=== PATIENT | male | born 1960 | race Two or more races ===

== ENCOUNTER → 2024-02-29 | Outpatient (CLI) | payer OTHER, SELFPAY ==
[2024-02-29 14:24] LABS: Basophils # (Auto) 0.1 Thou/mm3 (0.0-0.2); Basophils % (Auto) 1 % (0-2.5); Eosinophils # (Auto) 0.2 Thou/mm3 (0.0-0.5); Eosinophils % (Auto) 2 % (0-10); Hematocrit 47.8 % (41.0-53.0); Immature Granulocytes % (Auto) 1 % (0-0); Immature Granulocytes Auto 0.05 Thou/mm3 (0.00-0.00); Lymphocytes % (Auto) 30 % (10-50); Mean Corpuscular HGB Conc 33.5 g/dl (31.0-37.0); Mean Corpuscular Hemoglobin 31.4 pg (25.0-35.0); Mean Corpuscular Volume 94 fL (80-100); Monocytes # (Auto) 0.7 Thou/mm3 (0.0-0.8); Monocytes % (Auto) 7 % (0-12); Neutrophils % (Auto) 60 % (37-80); Nucleated Red Blood Cell % 0 /100 WBC (0); Platelet Count 294 Thou/mm3 (140-440); RDW Standard Deviation 45.5 fL (35.1-43.9); Red Blood Count 5.09 Miln/mm3 (4.50-5.90); White Blood Count 9.9 Thou/mm3 (3.8-10.6)
[2024-02-29 14:28] LABS: INR 0.9 (0.9-1.3); Partial Thromboplastin Time 26.7 Seconds (22.0-36.0); Prothrombin Time 10.3 Seconds (9.0-12.2)
[2024-02-29 14:29] LABS: Glucose Estimated Average 131 mg/dL (80-131); Hemoglobin A1C 6.2 % Hgb (4.8-6.0)
[2024-02-29 14:31] LABS: Anion Gap 7 (7-16); BUN/Creatinine Ratio 17 Ratio (12-20); Blood Urea Nitrogen 15 mg/dL (9-23); Calcium 9.3 mg/dL (8.3-10.6); Carbon Dioxide 29.6 mMol/L (20.0-31.0); Chloride 107 mMol/L (98-107); Creatinine (Component) 0.9 mg/dL (0.6-1.3); Glucose 100 mg/dL (74-106); Osmolality,Calculated 287 (275-295); Potassium 4.4 mMol/L (3.4-5.1); Sodium 144 mMol/L (136-145); eGFR > 60 See Note
== END | disposition home or self-care (01) ==
LOC: COPL 13:02
PROVIDERS: Referring Provider Internal Medicine; Visit Provider Internal Medicine
DX: I25.10 Atherosclerotic heart disease of native coronary artery without angina pectoris (principal); I48.91 Unspecified atrial fibrillation
CPT/HCPCS: 36415; 80048; 83036; 85025; 85610; 85730

== ENCOUNTER → 2024-03-23 | Outpatient (CLI) | payer OTHER, SELFPAY ==
[2024-03-23 16:10] LABS: Collection Type, Urine Catheter; Squamous Epithelial Cell,Urine 0 /hpf (0-5)
[2024-03-23 16:30] LABS: Basophils % (Auto) 0 % (0-2.5); Eosinophils # (Auto) 0.2 Thou/mm3 (0.0-0.5); Eosinophils % (Auto) 2 % (0-10); Hematocrit 50.3 % (41.0-53.0); Hemoglobin 16.8 g/dL (13.5-16.0); Immature Granulocytes % (Auto) 0 % (0-0); Immature Granulocytes Auto 0.02 Thou/mm3 (0.00-0.00); Lymphocytes # (Auto) 2.8 Thou/mm3 (1.0-4.8); Lymphocytes % (Auto) 26 % (10-50); Mean Corpuscular HGB Conc 33.4 g/dl (31.0-37.0); Mean Corpuscular Hemoglobin 31.4 pg (25.0-35.0); Mean Corpuscular Volume 94 fL (80-100); Monocytes # (Auto) 0.8 Thou/mm3 (0.0-0.8); Monocytes % (Auto) 8 % (0-12); Neutrophils # (Auto) 6.9 Thou/mm3 (1.8-7.7); Neutrophils % (Auto) 64 % (37-80); Nucleated Red Blood Cell % 0 /100 WBC (0); Platelet Count 298 Thou/mm3 (140-440); RDW Standard Deviation 45.8 fL (35.1-43.9); Red Blood Count 5.35 Miln/mm3 (4.50-5.90); White Blood Count 10.8 Thou/mm3 (3.8-10.6)
[2024-03-23 16:50] LABS: Alanine Aminotransferase 25 U/L (10-49); Albumin, Serum 4.7 gm/dL (3.4-4.8); Albumin/Globulin Ratio 2.1 (1.2-2.2); Alkaline Phosphatase 137 U/L (46-116); Anion Gap 9 (7-16); Aspartate Amino Transferase 28 U/L (0-34); BUN/Creatinine Ratio 17 Ratio (12-20); Blood Urea Nitrogen 19 mg/dL (9-23); Calcium 9.5 mg/dL (8.3-10.6); Calcium (Corrected) 9.5 mg/dL (8.5-10.1); Carbon Dioxide 27.5 mMol/L (20.0-31.0); Chloride 107 mMol/L (98-107); Cholesterol 124 mg/dL (132-200); Creatinine (Component) 1.1 mg/dL (0.6-1.3); Globulin 2.2 gm/dL (2.3-3.5); Glucose 101 mg/dL (74-106); HDL Cholesterol 42 mg/dL (40-60); LDL Cholesterol,Calculated 63 mg/dL (0-130); Osmolality,Calculated 287 (275-295); Potassium 4.1 mMol/L (3.4-5.1); Sodium 143 mMol/L (136-145); Thyroid Stimulating Hormone 0.66 uIU/mL (0.55-4.78); Total Protein 6.9 gm/dL (5.7-8.2); Triglycerides 97 mg/dL (30-150); eGFR > 60 See Note
[2024-03-23 16:51] LABS: Glucose Estimated Average 126 mg/dL (80-131)
[2024-03-23 16:58] LABS: Bilirubin,Urine Negative (Negative); Blood,Urine Trace (Negative); Clarity,Urine Clear (Clear/Hazy); Color,Urine Yellow (Lt Yel-Yel); Glucose, Urine Negative (Negative); Ketones,Urine Negative (Negative); Leukocyte Esterase,Urine Negative (Negative); Nitrite,Urine Negative (Negative); PH,Urine 6.5 (5.0-7.0); Protein,Urine Trace (Neg - Trace); RBC,Urine 3 /hpf (0-3); Specific Gravity,Urine 1.026 (1.001-1.035); Urobilinogen,Urine Negative mg/dL (0.0-1.0); WBC,Urine 2 /hpf (0-5)
[2024-03-23 17:08] LABS: Syphilis Nonreactive (Nonreactive)
[2024-03-23 17:14] LABS: HIV (1&2) Antibody Rapid Non-Reactive
[2024-03-23 17:39] LABS: Hepatitis A Antibody IgM Non Reactive (Non React); Hepatitis B Core Antibody IgM Non Reactive (Non React); Hepatitis B Surface Antigen Non Reactive (Non React); Hepatitis C Antibody Non Reactive (Non React)
== END | disposition home or self-care (01) ==
LOC: COPL 13:47
PROVIDERS: PCP Family Medicine; Referring Provider Family Medicine; Visit Provider Family Medicine
DX: Z00.00 Encounter for general adult medical examination without abnormal findings (principal); I25.10 Atherosclerotic heart disease of native coronary artery without angina pectoris; E78.2 Mixed hyperlipidemia; I10 Essential (primary) hypertension; B87.3 Nasopharyngeal myiasis
CPT/HCPCS: 36415; 80053; 80061; 80074; 81001; 83036; 84443; 85025; 86703; 86780

== ENCOUNTER 2024-04-30 09:26 | Inpatient (IN) | payer OTHER, MEDICARE, SELFPAY ==
[2024-04-30] VITALS (10 sets, daily range): BP systolic 110–139; BP diastolic 67–85; PULSE 71–85; RESP 17–97; TEMP 36.3–36.9; O2SAT 95–100; BMI 29.1
--- NOTE | 2024-04-30 09:36 | XR_ITS ---
Examination: AP lateral chest 2 views TECHNIQUE: Portable semiupright AP lateral chest 2 views Standing time: April 30, 2024 at 0849 hours Comparison July 30, 2020 INDICATIONS: Such as pain today. FINDINGS: Early heart failure Mild retrocardiac contour with prominent vascular congestion and early septal edema Suspicious for early bibasilar pneumonia CABG Moderate osteopenia IMPRESSION: Early heart failure Suspicious for early bibasilar pneumonia
--- NOTE | 2024-04-30 09:36 | EKG_ITS ---
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
--- NOTE | 2024-04-30 09:47 | PD.EDRME ---
Rapid Medical Screening Exam RME Arrival date/time: 04/30/24 09:26 64-year-old male presents emergency department with complaints of acute left chest pain radiating to his shoulder and neck . I have greeted and performed a focused initial assessment of this patient. Initial appropriate labs ordered at this time. A comprehensive ED assessment and evaluation of the patient and analysis of all test and completion of medical decision making process will be conducted by additional ED provider. Chief Complaint: Chest Pain Time Seen by Provider: 04/30/24 09:36 Vital signs: Vital Signs Temperature 97.7 F 04/30/24 09:32 Pulse Rate 71 04/30/24 09:32 Respiratory Rate 18 04/30/24 09:32 Blood Pressure 139/85 H 04/30/24 09:32 Pulse Oximetry (%) 99 04/30/24 09:32 Oxygen Delivery Method Room Air 04/30/24 09:32
[2024-04-30 10:28] LABS: Basophils # (Auto) 0.1 Thou/mm3 (0.0-0.2); Basophils % (Auto) 0 % (0-2.5); Eosinophils # (Auto) 0.2 Thou/mm3 (0.0-0.5); Eosinophils % (Auto) 1 % (0-10); Hematocrit 47.4 % (41.0-53.0); Hemoglobin 15.7 g/dL (13.5-16.0); Immature Granulocytes % (Auto) 0 % (0-0); Immature Granulocytes Auto 0.05 Thou/mm3 (0.00-0.00); Lymphocytes # (Auto) 3.4 Thou/mm3 (1.0-4.8); Lymphocytes % (Auto) 25 % (10-50); Mean Corpuscular HGB Conc 33.1 g/dl (31.0-37.0); Mean Corpuscular Hemoglobin 31.1 pg (25.0-35.0); Mean Corpuscular Volume 94 fL (80-100); Monocytes % (Auto) 8 % (0-12); Neutrophils # (Auto) 8.8 Thou/mm3 (1.8-7.7); Neutrophils % (Auto) 65 % (37-80); Nucleated Red Blood Cell % 0 /100 WBC (0); Platelet Count 253 Thou/mm3 (140-440); RDW Standard Deviation 45.9 fL (35.1-43.9); Red Blood Count 5.05 Miln/mm3 (4.50-5.90); White Blood Count 13.5 Thou/mm3 (3.8-10.6)
[2024-04-30 10:33] LABS: B-Type Natriuretic Peptide 24 pg/mL (0-100)
[2024-04-30 10:35] LABS: Alanine Aminotransferase 27 U/L (10-49); Albumin, Serum 4.3 gm/dL (3.4-4.8); Albumin/Globulin Ratio 1.7 (1.2-2.2); Alkaline Phosphatase 121 U/L (46-116); Anion Gap 9 (7-16); Aspartate Amino Transferase 18 U/L (0-34); BUN/Creatinine Ratio 16 Ratio (12-20); Bilirubin,Total 0.9 mg/dL (0.3-1.2); Blood Urea Nitrogen 16 mg/dL (9-23); Carbon Dioxide 25.5 mMol/L (20.0-31.0); Chloride 108 mMol/L (98-107); Estimated Creatinine Clearance 71.5 mL/min (>60); Globulin 2.5 gm/dL (2.3-3.5); Glucose 148 mg/dL (74-106); Lipase 34 U/L (12-53); Magnesium 1.9 mg/dL (1.6-2.6); Osmolality,Calculated 287 (275-295); Sodium 142 mMol/L (136-145); Total Protein 6.8 gm/dL (5.7-8.2); eGFR > 60 See Note
[2024-04-30 10:42] LABS: Troponin I 0.062 ng/mL (0.0-0.045)
[2024-04-30] MEDS: ASPIRIN 81 MG CHEW 324 MG PO (10:50)
[2024-04-30] MEDS: MORPHINE SULF INJ 10 MG/ML VIAL 4 MG IVP (10:51)
[2024-04-30] MEDS: ONDANSETRON ODT 4 MG TABRAP PO (10:51)
[2024-04-30 10:56] LABS: Partial Thromboplastin Time 25.2 Seconds (22.0-36.0); Prothrombin Time 10.9 Seconds (9.0-12.2)
--- NOTE | 2024-04-30 11:31 | EKG_ITS ---
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: : 1960 Requested By: Saul Ricardo Order Number: [id number] Reading MD: Saul Ricardo Measurements Intervals [place] Rate: 70 P: 56 ID: [id number] QRS: 17 QRSD: 81 T: -68 QT: 398 QTc: 432 Interpretive Statements SINUS RHYTHM WITH OCCASIONAL VENTRICULAR PREMATURE COMPLEXES POSSIBLE LEFT ATRIAL ENLARGEMENT [-0.1mV P-WAVE IN V1/V2] ST DEVIATION AND MODERATE T-WAVE ABNORMALITY, CONSIDER ANTEROLATERAL ISCHEMIA [-0.1+ mV T-WAVE IN V3-V6] ST DEVIATION AND MODERATE T-WAVE ABNORMALITY, CONSIDER INFERIOR ISCHEMIA [-0.1+ mV T-WAVE IN II/aVF] Compared to ECG 04/30/2024 09:40:55 Ventricular premature complex(es) now present T-wave abnormality still present Possible ischemia still present /store/S0/[id number]/ecg/[id number].pdf
--- NOTE | 2024-04-30 11:34 | EDNOTE_ITS ---
ED Chest Pain RME/HPI General Chief Complaint: Chest Pain Stated Complaint: CHEST PAIN Time Seen by Provider: 04/30/24 09:36 Arrival date/time: 04/30/24 09:26 RME / HPI RME / HPI narrative: 04/30/24 09:26 64-year-old male presents emergency department with complaints of acute left chest pain radiating to his shoulder and neck. I have greeted and performed a focused initial assessment of this patient. Initial appropriate labs ordered at this time. A comprehensive ED assessment and evaluation of the patient and analysis of all test and completion of medical decision making process will be conducted by additional ED provider. DR. RICARDO MAIN ED EVALUATION: 64 year old male presents to the Emergency Department accompanied by his with complaint of left-sided chest pain intermittently for 3 days but since 330 AM is has been worse and constant. Pain is described as pressure, aching, and rated 9/10 initially and now after pain medications it is a 4/10. Breathing exacerbates the pain, he states that when he breathes he feels like his chest will explode. Associated symptoms include mild shortness of breath and a little cough with phlegm. He has an angiogram scheduled on 05/03/2024. Has history of heart valve replacement. History of nasal surgery due to nose infection 10-15 years ago. Related Data Home Medications ?Medication ?Instructions ?Recorded ?Confirmed naproxen sodium 550 mg tablet 1 tab PO BID PRN Pain ## 90 12/10/14 01/22/22 omeprazole 20 mg capsule,delayed 20 mg PO QDAY 2 01/22/22 release oxycodone-acetaminophen 10 mg-325 1 tab PO Q8H PRN [place] n 01/21/22 04/30/24 mg tablet (Percocet) aspirin 81 mg tablet,delayed 81 mg PO DAILY 04/30/24 0 04/30/24 release atorvastatin 80 mg tablet 80 mg PO DAILY 04/30/2404/09 metoprolol tartrate 25 mg tablet 25 mg PO Q12H 5 04/30/24 Allergies Allergy/AdvReac Type Severity Reaction Status Date / Time Milk Containing Products Allergy Severe Nausea Verified 04/30/24 09:30 (Dairy) (Milk Containing Products) Review of Systems Review of Systems Systems Reviewed: All systems reviewed, normal except as documented Narrative Review of Systems: Constitutional: DENIES: fevers; Eyes: DENIES: loss of vision; Head/Ear/Nose: DENIES: loss of hearing. Throat: DENIES: dysphagia. Cardiovascular: POSITIVES: left-sided chest pain DENIES: syncope. Respiratory: POSITIVES little cough with phlegm, mild shortness of breath Gastrointestinal: DENIES: rectal bleeding or melena. Genitourinary: DENIES: dysuria (painful or difficult urination); Musculoskeletal: DENIES: arthralgia (pain in a joint); Skin: DENIES: rash; Neurological: DENIES: loss of function or movement; Psychiatric: DENIES: recent major life stressor, emotional problem, illicit drug use or abuse; Endocrinology: DENIES: weight change,; Hematologic/Lymphatic: DENIES: abnormal bruising. Allergic/Immunologic: DENIES: urticaria (hives). Past Medical History Past Medical History CARDIAC: Positive Cardiac Disorders, Myocardial Infarction, Hypercholesterolemia and Valvular Heart Disease GASTROINTESTINAL: Positive Gastrointestinal Disorders and Ulcer GENITOURINARY: Positive Genitourinary Disorders and Kidney Stones MUSCULOSKELETAL: Positive Musculoskeletal Disorders and Fractures (back, right third finger) ENT: Positive Cataracts Family History FAMILY HISTORY: Positive Family Cardiac Disorders, Family Gastrointestinal Problems and Family Cancer Surgical History SURGICAL: Positive Open Heart Surgery, Coronary Artery Bypass Graft, Valve Replacement and Joint Replacement; Negative Endocrine Surgery Social History SMOKING STATUS: Never smoker SECOND HAND EXPOSURE: No SUBSTANCE USE: does not use ALCOHOL: Never Course Quality Measures none Orders Category Date Time Status EKG (ED ONLY) *Do not use* NOW Care 04/30/24 09:36 Completed EKG (ED ONLY) *Do not use* NOW Care 04/30/24 11:31 Completed EKG (ED Only) Stat Exams 04/30/24 09:36 Draft EKG (ED Only) Stat Exams 04/30/24 11:31 Draft XR chest 2V Stat Exams 04/30/24 09:36 Completed B-Type Natriuretic Peptide Stat Lab 04/30/24 09:50 Completed CBC Stat Lab 04/30/24 09:50 Completed Comprehensive Metabolic Panel Stat Lab 04/30/24 09:50 Completed Lipase Stat Lab 04/30/24 09:50 Completed Magnesium Stat Lab 04/30/24 09:50 Completed Partial Thromboplastin Time Stat Lab 04/30/24 09:50 Completed Prothrombin Time with INR Stat Lab 04/30/24 09:50 Completed Troponin I Stat Lab 04/30/24 09:50 Completed Troponin I Stat Lab 04/30/24 12:54 Completed Aspirin Chew Med 04/30/24 10:29 Discontinued 324 mg PO X1 ONE Clopidogrel [Plavix] Med 04/30/24 14:30 Discontinued 300 mg PO X1 ONE Heparin Inj Med 04/30/24 14:30 Discontinued 4,000 unit IV X1 ONE Heparin/D5w 25K 250 ML Ivpb [Heparin in D5w Ivpb] Med 04/30/24 14:30 Active 25,000 unit in 250 ml IV 12 units/kg/hr Morphine Inj Med 04/30/24 10:29 Discontinued 4 mg IVP X1 ONE Nitroglycerin Oint 2% [Nitro-paste Oint 2%] Med 04/30/24 11:31 Discontinued 1 inch TOP X1 ONE Ondansetron Odt [Zofran Odt] Med 04/30/24 09:36 Discontinued 4 mg PO X1 ONE Reevaluation(s) Reevaluation #1: Re-assessment at this time demonstrates that the patient feels better after the nitro paste. Troponin is going up from 0.062 to 0.239, patient will be admitted. Time: 13:43 Vital Signs Vital signs: Vital Signs Temperature 97.7 F 04/30/24 09:32 Pulse Rate 71 04/30/24 09:32 Respiratory Rate 18 04/30/24 09:32 Blood Pressure 139/85 H 04/30/24 09:32 Pulse Oximetry (%) 99 04/30/24 09:32 Oxygen Delivery Method Room Air 04/30/24 09:32 Chest Pain MDM Narrative MDM Narrative:: Patient is a 64-year-old with known coronary disease and previous bypass surgery for valve replacement comes in with chest pain, which was off-and-on for 3 days but this morning it was much worse at 330. His initial EKG was done which reveals no STEMI is got some flipped T waves in the inferior and precordial leads. Because he was having continuous chest pain a second EKG was done which revealed the same. Initial troponin was done which was 0.062 and the delta Trope came back at 0.239 which was elevated and concerning for unstable angina. Despite this his chest discomfort did improve after some Nitropaste. He got aspirin previous this. He also got morphine. This chest x-ray reveals some infiltrates or congestive heart failure. There is no consolidating pneumonia. He is got an enlarged heart and sternotomy wires are placed from his previous valve surgery. White count is 13.5 hemoglobin is 15.7 platelet count is 253,000. PT/INR is 10.91.0 and sodium 142 potassium 4.0 chloride 108 CO2 25.5 BUN 16 creatinine is 1 glucose 148. Bilirubin and transaminases are within normal limits. BNP came back at 24. Lipase is 34. PTT is 25.2. Reevaluation at 1425 hrs. shows the patient be much more comfortable. His gallery or museum technician Dr. Sultana was contacted and discussed the case and he would like the patient be admitted start him on both Plavix and heparin and he plans to do another angiogram tomorrow. Patient has unstable angina with an increasing troponin level makes this possible early ACS. Patient was updated on his results. And understands a plan. Zuly Pruitt am scribing for and in the presence of Dr. Ricardo. Patient data External records reviewed:: [facility] previous records (Reviewed last ED visit dated 03/04/22 discharged with the following: Hematuria) Clinical information provided by:: patient Social determinants that could affect healthcare access:: none Patient has the following chronic illnesses:: He has an angiogram scheduled on 05/03/2024. Has history of heart valve replacement. History of nasal surgery due to nose infection 10-15 years ago. How is presenting disease/condition affected by chronic disease/condition?: exacerbated by Evaluation data The following diagnostics were reviewed and interpreted by me:: lab results, radiology exam(s) and EKG tracing(s) (EKG#1: EKG at 0940 hours. Interpreted by me: sinus rhythm, rate 68, flipped T waves inferiorly and anteriorly, no STEMIEKG#2: EKG at 1219 hours. Interpreted by me: sinus rhythm, rate 70, still flipped T waves inferiorly and anteriorly, no STEMI) Lab and/or radiology exams considered but not ordered:: none Interpretation Summary: See above under MDM narrative. EKG#1: EKG at 0940 hours. Interpreted by me: sinus rhythm, rate 68, flipped T waves inferiorly and anteriorly, no EKG#2: EKG at 1219 hours. Interpreted by me: sinus rhythm, rate 70, still fli pped T waves inferiorly and anteriorly, no STEMI RADIOLOGY Procedure(s): XR chest 2V Accession Number(s): [id number] cc: Robbie Harrison MD; Osei Carvajal MD; Ector ([facility])Farnaz~ Examination: AP lateral chest 2 views TECHNIQUE: Portable semiupright AP lateral chest 2 views Standing time: April 30, 2024 at 0849 hours Comparison July 30, 2020 INDICATIONS: Such as pain today. FINDINGS: Early heart failure Mild retrocardiac contour with prominent vascular congestion and early septal edema Suspicious for early bibasilar pneumonia CABG Moderate osteopenia IMPRESSION: Early heart failure Suspicious for early bibasilar pneumonia Dictated By: Osei Carvajal MD Medications / Prescriptions Medications or Prescriptions considered but not ordered:: none Medication administrations:: Medication Administration History Heparin Sodium/Dextrose (Heparin In D5w Ivpb) 25,000 unit in 250 mls @ 9.525 mls/hr IV .Q24H [facility]; Protocol Stop: 05/14/24 14:29 Discontinued Medications Aspirin (Aspirin 81 Mg Chew) 324 mg PO X1 ONE Stop: 04/30/24 10:30 Last Admin: 04/30/24 10:50 Dose: 324 mg Documented By: DEREK Clopidogrel Bisulfate (Clopidogrel Bisulfate 75 Mg Tablet) 300 mg PO X1 ONE Stop: 04/30/24 14:31 Heparin Sodium (Porcine) (Heparin Sod Inj 5000 Unit/Ml Vial) 4,000 unit IV X1 ONE; Protocol Stop: 04/30/24 14:31 Morphine Sulfate (Morphine Sulf Inj 10 Mg/Ml Vial) 4 mg IVP X1 ONE Stop: 04/30/24 10:30 Last Admin: 04/30/24 10:51 Dose: 4 mg Documented By: DEREK Nitroglycerin (Nitroglycerin Oint 2% 1 Inch Packet) 1 inch TOP X1 ONE Stop: 04/30/24 11:32 Last Admin: 04/30/24 12:23 Dose: 1 inch Documented By: MATEUSZ Ondansetron HCl (Ondansetron Odt 4 Mg Tabrap) 4 mg PO X1 ONE Stop: 04/30/24 09:37 Last Admin: 04/30/24 10:51 Dose: 4 mg Documented By: DEREK see above Consultations Consultation(s) initiated? (list below): Yes Consultation #1 (Physician, Specialty, Details): Discussed test HPI, PMHx, lab, radiology results and/or management with hospitalist. Will admit for further evaluation and management. Accepts patient for admission. Time: 14:30 Diagnosis Chest Pain Differential Diagnosis: stable angina, unstable angina pectoris, atypical chest pain, st elevation myocardial infarction, costochondritis, chest pain and other (URI) Most likely diagnosis given after review of the tests above:: See below. Admission Indicated Admission indicated?: indicated Admission Request Was there a request for admission?: Yes Admission Attestation Admission request attestation: Discussed case with [] from Hospitalist service regarding admission. Discussed patients ED course, exam findings, labs, and radiology results. The Hospitalist [agrees,declines] to accept the patient for admission. Disposition Plan Disposition Plan: Admit Critical Care Time Critical Care Time Critical Care Time: Yes Total Critical Care Time (min.): 45 Attestation: The high probability of sudden, clinically significant deterioration in the patient?s condition required the highest level of my preparedness to intervene urgently. The services I provided to this patient were to treat and/or prevent clinically significant deterioration. Services included the following: chart data review, reviewing nursing notes and/or old charts, documentation time, identity management consultant collaboration regarding findings and treatment options, medication orders and management, direct patient care, vital sign assessments and ordering, interpreting and reviewing diagnostic studies and lab tests. Aggregate critical care time includes only time during which I was engaged in work directly related to the patient?s care, as described above, whether at bedside or elsewhere in the Emergency Department. It did not include time spent performing other reported procedures or the services of residents, students, nurses or physician assistants. Discharge Plan Plan Patient Disposition: Admit Acute Care w/in Hospital Disposition Comment: Hospitalist admit Dr. Sultana to consult Prescriptions/Referrals Prescriptions/Med Rec: No Action naproxen sodium 550 MG tablet 1 tab PO BID PRN (Reason: Pain) Qty: 90 oxycodone-acetaminophen [Percocet] 10-325 mg Tablet 1 tab PO Q8H PRN (Reason: Pain) omeprazole 20 mg Capsule,Delayed Release(Dr/Ec) 20 mg PO QDAY atorvastatin 80 mg tablet 80 mg PO DAILY Patient Comments: take 1 tablet by mouth once daily aspirin 81 mg tablet,delayed release (DR/EC) 81 mg PO DAILY Patient Comments: take 1 tablet by mouth once daily metoprolol tartrate 25 mg tablet 25 mg PO Q12H Patient Comments: take 1 tablet by mouth twice a day Referrals: Robbie Harrison MD [Primary Care Provider] - In 1 week Problem List Clinical Impression: Unstable angina, Elevated troponin Patient/Caregiver Discharge Instructions Print Language: Nauruan Stand Alone Forms: Radha Award Info., Patient Portal Info Letter
[2024-04-30] MEDS: NITROGLYCERIN OINT 2% 1 INCH PACKET TOP (12:23)
[2024-04-30 13:27] LABS: Troponin I 0.239 ng/mL (0.0-0.045)
[2024-04-30] MEDS: CLOPIDOGREL BISULFATE 75 MG TABLET 300 MG PO (15:33)
[2024-04-30] MEDS: PANTOPRAZOLE INJ 40 MG VIAL IVP (15:35)
[2024-04-30] MEDS: HEPARIN SOD INJ 5000 UNIT/ML VIAL 4000 UNIT IV (15:38)
[2024-04-30] MEDS: Heparin/D5w 25K 250 ML Ivpb 25,000 UNIT/250 ML BAG 9.525 UNIT IV (15:40)
[2024-04-30] MEDS: Magnesium Sulfate 2 GM Ivpb 2 GM/50 ML BAG IV (15:44)
--- NOTE | 2024-04-30 16:27 | ESHP_ITS ---
<Statement entered by Weston Bridges MD - 04/30/24 17:06> This patient is a 64-year-old male with history of mitral valve replacement not on anticoagulation, nephrolithiasis, hyperlipidemia presented with typical chest pain 9 on 10 radiating to the arm and shoulder on left side 3 days ago. EKG showed T wave inversion on anterior leads V1/V2/V3/V4. Environmental Services Coordinator, Dr. Sultana was consulted who recommended bolus of aspirin and Plavix and starting heparin drip for ACS protocol. He will perform cardiac angiogram tomorrow morning. N.p.o. after midnight. Patient is agreeable to the plan. Nitroglycerin as needed for chest pain. All labs and orders were reviewed. I saw and examined the patient, and I agree with current management stated by Dr Blake MD,PGY1. Plan of care was discussed with the attending physician and resident physician. Disclaimer: Despite multiple revisions, due to the dictation software being used, the document bellow may not be free of grammatical errors including phonetic/typographic errors. However, this does not deter from our commitment to providing health care in the patient's best interest in mind. Dr. Daquan MD, PGY 2 Documentation for date of: 04/30/24 HPI History of Present Illness History of present illness: Ulysses Brito is a 64-year-old male with a self-reported history of CABG and valve replacement (not on AC), nephrolithiasis, and hyperlipidemia who presents to the ED with chest discomfort. Patient states that he has had this discomfort on and off for the last 3 days but acutely worsened at around 3 AM on day of presentation. He describes it as chest pressure across his chest and it woke him up from his sleep with associated shortness of breath. Pain is not associated with exertion and normally goes away within minutes but this pain remained constant, radiates to left armpit, posterior neck, and back. He states that this pain is different from his previous cardiac events in the past. Patient follows up with waste machine tender Dr. Sultana. In ED, patient was normotensive, afebrile, and on room air. CBC showed WBC 13.5, CHEM panel largely unremarkable. Troponin uptrending 0.062 -> 0.24 -> 0.97. EKG showed ST depressions in leads V4, 5, 6 (not present on EKG from 2019). Admitted for further workup of ACS. PMHx: ? CABG and valve replacement, nephrolithiasis, hyperlipidemia Medications: Aspirin 81 mg, atorvastatin 80 mg, metoprolol tartrate 25 mg twice daily SHx: Previously smoked 1 pack/day for 49 years but recently now smokes 1 pack/week, history of drinking 24 beers per day for 20 years (last drink 20 years ago), distant history of cocaine use (20 years ago) PSHx: ? CABG and valve replacement, hernia repairs Review of Systems Review of Systems Systems Reviewed: All systems reviewed, normal except as documented Exam Vital Signs Temp Pulse Resp BP Pulse Ox O2 Del Method 97.9 F 82 18 120/67 95 Room Air 04/30/24 16:17 04/30/24 16:17 04/30/24 16:17 04/30/24 16:17 04/30/24 16:17 04/30/24 16:17 Results: Labs 04/30/24 09:50 04/30/24 09:50 Labs: Short CBC 04/30/24 Range/Units 09:50 WBC 13.5 H (3.8-10.6) Thou/mm3 Hgb 15.7 (13.5-16.0) g/dL Hct 47.4 (41.0-53.0) % Plt Count 253 D (140-440) Thou/mm3 BMP 04/30/24 09:50 Sodium 142 Potassium 4.0 Chloride 108 H Carbon Dioxide 25.5 BUN 16 Creatinine 1.0 Glucose 148 H Calcium 9.0 Cardiac Enzymes 04/30/24 04/30/24 04/30/24 Range/Units 09:50 12:54 14:57 Troponin I 0.062 H* 0.239 H* 0.970 H* D (0.0-0.045) ng/mL Liver Function 04/30/24 Range/Units 09:50 Total Bilirubin 0.9 (0.3-1.2) mg/dL AST 18 (0-34) U/L ALT 27 (10-49) U/L Alkaline Phosphatase 121 H (46-116) U/L Albumin 4.3 (3.4-4.8) gm/dL Quality Measures Quality Measures none Advance care planning discussed with:: other Medications Home Medications and Allergies Home Medications ?Medication ?Instructions ?Recorded ?Confirmed ?Type naproxen sodium 550 mg tablet 1 tab PO BID PRN Pain ## 90 12/10/14 01/22/22 History omeprazole 20 mg capsule,delayed 20 mg PO QDAY 2 01/22/22 History release oxycodone-acetaminophen 10 mg-325 1 tab PO Q8H PRN [place] n 01/21/22 04/30/24 History mg tablet (Percocet) aspirin 81 mg tablet,delayed 81 mg PO DAILY 04/30/24 0 04/30/24 History release atorvastatin 80 mg tablet 80 mg PO DAILY 04/30/2404/09 History metoprolol tartrate 25 mg tablet 25 mg PO Q12H 5 04/30/24 History Allergies Allergy/AdvReac Type Severity Reaction Status Date / Time Milk Containing Products Allergy Severe Nausea Verified 04/30/24 09:30 (Dairy) (Milk Containing Products) Visit Medications Acetaminophen (Acetaminophen 325 Mg Tablet) 650 mg PO Q6H PRN PRN Reason: Fever >101.5 Stop: 05/30/24 14:37 Acetaminophen (Acetaminophen 325 Mg Tablet) 650 mg PO Q6H PRN PRN Reason: PAIN SCALE 1-3 (mild Stop: 05/30/24 14:37 Hydrocodone Bitart/Acetaminophen (Hydrocodone/Apap 5/325 Tablet) 1 tab PO Q4HR PRN PRN Reason: PAIN SCALE 4-6 (Moderate Stop: 05/05/24 14:37 Aspirin (Aspirin Ec 81 Mg Tabec) 81 mg PO QDAY JUAN PABLO Stop: 05/31/24 08:59 Dextrose (Dextrose 50%-Water Inj 50 Ml Syringe) 25 ml IV Q15MIN PRN PRN Reason: BG 50-70 responsive npo pt Stop: 05/30/24 14:37 Dextrose (Dextrose 50%-Water Inj 50 Ml Syringe) 50 ml IV Q15MIN PRN PRN Reason: BG <50 OR BG <70 & pt unresponsive Stop: 05/30/24 14:37 Glucagon (Glucagon Inj 1 Mg Vial) 1 mg IM Q15MIN PRN PRN Reason: BG <70, and no IV access Heparin Sodium/Dextrose (Heparin In D5w Ivpb) 25,000 unit in 250 mls @ 9.525 mls/hr IV .Q24H JUAN PABLO; Protocol Stop: 05/14/24 14:29 Last Admin: 04/30/24 15:40 Dose: 12 units/kg/hr, 9.525 mls/hr Magnesium Sulfate (Magnesium Sulfate Ivpb) 2 gm in 50 mls @ 25 mls/hr IV X1 ONE Stop: 04/30/24 16:39 Last Admin: 04/30/24 15:44 Dose: 25 mls/hr Insulin Human Lispro (Insulin Lispro (Admelog) 1 Unit/0.01 Ml Unit) 0 unit SC AC JUAN PABLO; Protocol Stop: 05/30/24 16:59 Metoprolol Tartrate (Metoprolol Tartrate 25 Mg Tablet) 25 mg PO BID [facility] Stop: 05/31/24 08:59 Morphine Sulfate (Morphine Sulf Inj 10 Mg/Ml Vial) 2 mg IVP Q4H PRN PRN Reason: PAIN SCALE 7-10 (Severe Stop: 05/05/24 14:37 Nitroglycerin (Nitroglycerin 0.4 Mg Subl Btl #25) 0.4 mg SL Q5MIN PRN PRN Reason: CHEST PAIN Ondansetron HCl (Ondansetron Inj 2 Mg/Ml Inj 2 Ml) 4 mg IV Q6H PRN; Protocol PRN Reason: NAUSEA OR VOMITING Stop: 05/30/24 14:37 Pantoprazole Sodium (Pantoprazole Inj 40 Mg Vial) 40 mg IVP QDAY [facility] Stop: 05/30/24 14:44 Last Admin: 04/30/24 15:35 Dose: 40 mg Sennosides (Senna Tablet) 1 tab PO QDAY PRN; Protocol PRN Reason: constipation Stop: 05/30/24 14:37 Discontinued Medications Aspirin (Aspirin 81 Mg Chew) 324 mg PO X1 ONE Stop: 04/30/24 10:30 Last Admin: 04/30/24 10:50 Dose: 324 mg Clopidogrel Bisulfate (Clopidogrel Bisulfate 75 Mg Tablet) 300 mg PO X1 ONE Stop: 04/30/24 14:31 Last Admin: 04/30/24 15:33 Dose: 300 mg Heparin Sodium (Porcine) (Heparin Sod Inj 5000 Unit/Ml Vial) 4,000 unit IV X1 ONE; Protocol Stop: 04/30/24 14:31 Last Admin: 04/30/24 15:38 Dose: 4,000 unit Morphine Sulfate (Morphine Sulf Inj 10 Mg/Ml Vial) 4 mg IVP X1 ONE Stop: 04/30/24 10:30 Last Admin: 04/30/24 10:51 Dose: 4 mg Nitroglycerin (Nitroglycerin Oint 2% 1 Inch Packet) 1 inch TOP X1 ONE Stop: 04/30/24 11:32 Last Admin: 04/30/24 12:23 Dose: 1 inch Ondansetron HCl (Ondansetron Odt 4 Mg Tabrap) 4 mg PO X1 ONE Stop: 04/30/24 09:37 Last Admin: 04/30/24 10:51 Dose: 4 mg Assessment & Plan Plan Ulysses Brito is a 64-year-old male with a self-reported history of CABG and valve replacement (not on AC), nephrolithiasis, and hyperlipidemia who presents to the ED with chest discomfort. Admitted for further workup of ACS. #? Acute coronary syndrome #NSTEMI Presents with atypical chest pain that is substernal and pressure-like, but not associated with exertion and is not get better with rest. Uptrending troponins, current peak of 0.97. EKG with T wave inversions in leads V4, 5, 6. SOLO score 104, 5% probability of 6 months from admission GIDEON score 4, urgent revascularization Received aspirin 324 mg x 1, clopidogrel 300 mg x 1. ? Cardiology consulted, appreciate recommendations ? Coronary angiogram tomorrow, 04/30 and n.p.o. after midnight ? Heparin drip ? Aspirin 81 mg p.o. daily ? Atorvastatin 80 mg p.o. daily ? Clopidogrel 75 mg p.o. daily ? Metoprolol tartrate 25 mg p.o. twice daily ? Nitroglycerin 0.4 mg sublingual as needed ? Morphine 2 mg IV every 4 hours as needed #Hyperlipidemia ? Atorvastatin as above #Prediabetes, A1c 6.0% on 03/2024 ? SSI AC ? Hypoglycemia protocol Hospital management: Disposition: pending left heart cath Fluids: Not indicated Diet: Cardiac, n.p.o. after midnight Lines: PIV DVT prophylaxis: Heparin drip GI prophylaxis: Pantoprazole 40 mg IV daily Basurto: Not indicated CODE STATUS: full code ----- Plan discussed with attending physician Dr. Humphrey and senior resident physician Dr. Daquan Lozano MD PGY-1 Internal Medicine Attending Provider Attestation/Addendum I have discussed and was present for the essential components of the history, physical examination, diagnosis, and treatment plan with the resident. I agree with the patient's care as documented by the resident and amended herein by me. Pasquale Humphrey DO. Patient seen and evaluated in the ED. In short, 64-year-old male with a significant past medical history of nephrolithiasis, GI bleed, GERD, PUD, BPH, HLD and alcohol abuse, presented to the ED with acute left-sided chest pain radiating to his left shoulder and back. The patient does follow with Dr. Baxter, was scheduled for coronary angiogram on 05/03/2024. Patient subsequently admitted for NSTEMI. In the ED, vital signs stable, patient afebrile, significant labs include a WBC of 13, chloride of 108. Troponin uptrending 0.970 latest reading. Chest x-ray demonstrating bibasilar pneumonia and early CHF. EKG does demonstrate T wave inversions in the precordial and lateral leads as well as lead II. Patient was started on heparin drip, given aspirin 325 mg, started on Plavix. Environmental Services Coordinator, Dr. Sultana has been consulted, coronary angiogram scheduled for tomorrow. Although this document has been carefully reviewed, there may still be some phonetic and other typographical errors. These errors are purely grammatical due to imperfections in the software program and should not be construed in any way to compromise the substance of the patient's medical care during this visit.
[2024-04-30] MEDS: MORPHINE SULF INJ 10 MG/ML VIAL 2 MG IVP (16:46)
[2024-04-30] MEDS: ATORVASTATIN CALCIUM 20 MG TABLET 80 MG PO (19:06)
[2024-04-30 21:21] LABS: Phosphorous 2.9 mg/dL (2.4-5.1)
--- NOTE | 2024-04-30 21:33 | EKG_ITS ---
[facility] Test Date: 2024-04-30 Pat Name: ALBIN PEREZ Department: Room: S271A Gender: Male Hand Box Folder: VALE : 1960 Requested By: Shubham Gabriel Order Number: [id number] Reading MD: Shubham Gabriel Measurements Intervals [place] Rate: 87 P: 46 [place]: 166 QRS: 41 QRSD: 82 T: 118 QT: 378 QTc: 456 Interpretive Statements SINUS RHYTHM WITH OCCASIONAL VENTRICULAR PREMATURE COMPLEXES POSSIBLE LEFT ATRIAL ENLARGEMENT ST DEVIATION AND MODERATE T-WAVE ABNORMALITY, CONSIDER LATERAL ISCHEMIA Compared to ECG 04/30/2024 12:19:58 No significant changes /store/S0/[id number].pdf
[2024-04-30] MEDS: SENNA TABLET 1 TAB PO (22:06)
[2024-04-30 22:59] LABS: Partial Thromboplastin Time 38.7 Seconds (22.0-36.0)
[2024-04-30] MEDS: HEPARIN SOD INJ 5000 UNIT/ML VIAL 2000 UNIT IVP (23:30)
[2024-05-01] VITALS (11 sets, daily range): BP systolic 112–131; BP diastolic 68–85; PULSE 75–92; RESP 12–94; TEMP 36.1–36.8; O2SAT 97–100; BMI 27.9
[2024-05-01 03:36] LABS: Troponin I 9.212 ng/mL (0.0-0.045)
[2024-05-01 05:58] LABS: Basophils % (Auto) 0 % (0-2.5); Eosinophils # (Auto) 0.2 Thou/mm3 (0.0-0.5); Eosinophils % (Auto) 1 % (0-10); Hematocrit 44.3 % (41.0-53.0); Hemoglobin 14.9 g/dL (13.5-16.0); Immature Granulocytes % (Auto) 0 % (0-0); Immature Granulocytes Auto 0.03 Thou/mm3 (0.00-0.00); Lymphocytes # (Auto) 3.1 Thou/mm3 (1.0-4.8); Lymphocytes % (Auto) 21 % (10-50); Mean Corpuscular HGB Conc 33.6 g/dl (31.0-37.0); Mean Corpuscular Hemoglobin 31.8 pg (25.0-35.0); Mean Corpuscular Volume 95 fL (80-100); Monocytes % (Auto) 7 % (0-12); Neutrophils # (Auto) 10.1 Thou/mm3 (1.8-7.7); Neutrophils % (Auto) 70 % (37-80); Nucleated Red Blood Cell % 0 /100 WBC (0); Platelet Count 226 Thou/mm3 (140-440); RDW Standard Deviation 46.5 fL (35.1-43.9); Red Blood Count 4.68 Miln/mm3 (4.50-5.90); White Blood Count 14.4 Thou/mm3 (3.8-10.6)
[2024-05-01 06:24] LABS: Alanine Aminotransferase 24 U/L (10-49); Albumin, Serum 3.7 gm/dL (3.4-4.8); Albumin/Globulin Ratio 1.7 (1.2-2.2); Alkaline Phosphatase 107 U/L (46-116); Anion Gap 10 (7-16); Aspartate Amino Transferase 39 U/L (0-34); BUN/Creatinine Ratio 23 Ratio (12-20); Bilirubin,Total 1.1 mg/dL (0.3-1.2); Blood Urea Nitrogen 18 mg/dL (9-23); Calcium 8.2 mg/dL (8.3-10.6); Calcium (Corrected) 8.4 mg/dL (8.5-10.1); Carbon Dioxide 24.5 mMol/L (20.0-31.0); Cardiac Risk Estimate 3.6 RATIO (4.0-6.7); Chloride 108 mMol/L (98-107); Cholesterol 123 mg/dL (132-200); Creatinine (Component) 0.8 mg/dL (0.6-1.3); Estimated Creatinine Clearance 87.7 mL/min (>60); Globulin 2.2 gm/dL (2.3-3.5); Glucose 103 mg/dL (74-106); HDL Cholesterol 34 mg/dL (40-60); LDL Cholesterol,Calculated 66 mg/dL (0-130); Magnesium 1.9 mg/dL (1.6-2.6); Osmolality,Calculated 285 (275-295); Phosphorous 3.5 mg/dL (2.4-5.1); Sodium 142 mMol/L (136-145); Thyroid Stimulating Hormone 0.89 uIU/mL (0.55-4.78); Total Protein 5.9 gm/dL (5.7-8.2); Triglycerides 113 mg/dL (30-150); eGFR > 60 See Note
[2024-05-01 06:34] LABS: Partial Thromboplastin Time 54.4 Seconds (22.0-36.0)
[2024-05-01] MEDS: Magnesium Sulfate 2 GM Ivpb 2 GM/50 ML BAG IV (07:59)
[2024-05-01 09:24] LABS: Troponin I 5.176 ng/mL (0.0-0.045)
--- NOTE | 2024-05-01 09:30 | PD.IMCONS ---
HPI Data of Consult Requesting Physician: Humberto Humphrey DO Primary Care Provider: Robbie Harrison MD Consult Narrative History of present illness: Lucio is a 64-year-old male with a self-reported history of CABG and valve replacement (not on AC), nephrolithiasis, and hyperlipidemia Pt seen in the ER with chest pain and sob EKG SR, ST depression V4-V6 troponin peaked at 7 today morning comfortabe no chest pain cc:: cc: Humberto Humphrey DO Meds Home Medications and Allergies Home Medications ?Medication ?Instructions ?Recorded ?Confirmed ?Type naproxen sodium 550 mg tablet 1 tab PO BID PRN Pain ##90 12/10/14 04/30/24 History oxycodone-acetaminophen 10 mg-325 1 tab PO Q8H PRN Pain 01/21/22 04/30/24 History mg tablet (Percocet) aspirin 81 mg tablet,delayed 81 mg PO DAILY 04/30/24 04/30/24 History release atorvastatin 80 mg tablet 80 mg PO DAILY 04/30/24 04/30/24 History metoprolol tartrate 25 mg tablet 25 mg PO Q12H 04/30/24 04/30/24 History Allergies Allergy/AdvReac Type Severity Reaction Status Date / Time Milk Containing Products Allergy Severe Nausea Verified 04/30/24 09:30 (Dairy) (Milk Containing Products) Exam Vital Signs Temp Pulse Resp BP Pulse Ox O2 Del Method 96.9 F 92 14 112/72 97 Room Air 05/01/24 08:00 05/01/24 08:00 05/01/24 08:00 05/01/24 08:00 05/01/24 08:00 05/01/24 08:00 Routine HEENT Exam Head: Present normocephalic and atraumatic Eye: Present EOMI and PERRL ENT: Present mucous membranes moist Routine Neck Exam Neck: Present supple and trachea midline Routine Respiratory Exam Respiratory: Present chest non-tender, lungs clear, normal breath sounds and no resp distress Routine Cardiovascular Exam Cardiovascular: Present RRR Routine Abdominal Exam Abdominal: Present soft and normoactive bowel sounds Routine Extremities Exam Extremities: Present full ROM Routine Skin Exam Skin: Present intact, dry and warm Routine Neurological Exam Neurological: Present alert, oriented X3 and CN II-XII intact Routine Psychiatric Exam Psychiatric: Present normal affect and normal thought process Results Labs 05/01/24 05:38 05/01/24 05:38 Labs: Short CBC 04/30/24 05/01/24 Range/Units 09:50 05:38 WBC 13.5 H 14.4 H (3.8-10.6) Thou/mm3 Hgb 15.7 14.9 (13.5-16.0) g/dL Hct 47.4 44.3 (41.0-53.0) % Plt Count 253 D 226 (140-440) Thou/mm3 BMP 04/30/24 05/01/24 09:50 05:38 Sodium 142 142 Potassium 4.0 4.0 Chloride 108 H 108 H Carbon Dioxide 25.5 24.5 BUN 16 18 Creatinine 1.0 0.8 Glucose 148 H 103 Calcium 9.0 8.2 L Cardiac Enzymes 04/30/24 04/30/24 04/30/24 Range/Units 09:50 12:54 14:57 Troponin I 0.062 H* 0.239 H* 0.970 H* D (0.0-0.045) ng/mL 04/30/24 05/01/24 05/01/24 Range/Units 20:44 02:57 08:41 Troponin I 7.856 H* D 9.212 H* D 5.176 H* D (0.0-0.045) ng/mL Liver Function 04/30/24 05/01/24 Range/Units 09:50 05:38 Total Bilirubin 0.9 1.1 (0.3-1.2) mg/dL AST 18 39 H (0-34) U/L ALT 27 24 (10-49) U/L Alkaline Phosphatase 121 H 107 (46-116) U/L Albumin 4.3 3.7 D (3.4-4.8) gm/dL Assessment and Plan Assessment and plan (1) Unstable angina: Status: Acute (2) CAD (coronary artery disease): Status: Acute (3) S/P CABG (coronary artery bypass graft): Status: Acute Additional Assessment & Plan Additional Plan: pt with non -STEMI continue asa/plavix /heparin echo heart cath tomorrow
[2024-05-01] MEDS: CLOPIDOGREL BISULFATE 75 MG TABLET PO (09:31)
[2024-05-01] MEDS: PANTOPRAZOLE INJ 40 MG VIAL IVP (09:31)
[2024-05-01] MEDS: ATORVASTATIN CALCIUM 20 MG TABLET 80 MG PO (09:31)
[2024-05-01] MEDS: METOPROLOL TARTRATE 25 MG TABLET PO ×2 (09:32→20:04)
[2024-05-01] MEDS: ASPIRIN EC 81 MG TABEC PO (09:32)
--- NOTE | 2024-05-01 11:46 | ESPR_ITS ---
<Statement entered by Weston Bridges MD - 05/01/24 15:26> Patient was seen and examined at the bedside. No acute overnight events were reported. Significant lab was troponin elevation as it peaked at 9 down trended to 5. Patient was eating his breakfast this morning when he was evaluated and stated that Dr. Sultana's want to perform cardiac angiogram tomorrow morning as Email Campaign Manager was packed up. Will continue with aspirin, Plavix and statin with heparin drip. White count slightly up trended. Hemoglobin is stable. Patient's family was updated regarding the plan and they were agreeable. Echocardiogram was ordered per cardiology recommendations. All labs and orders were reviewed. I saw and examined the patient, and I agree with current management stated by Dr Blake MD,PGY1. Plan of care was discussed with the attending physician and resident physician. Disclaimer: Despite multiple revisions, due to the dictation software being used, the document bellow may not be free of grammatical errors including phonetic/typographic errors. However, this does not deter from our commitment to providing health care in the patient's best interest in mind. Dr. Yuliana MD, PGY 2 Documentation for date of: 05/01/24 Subjective Subjective Interval history: Ulysses Brito is a 64-year-old male with a self-reported history of CABG and valve replacement (not on AC), nephrolithiasis, and hyperlipidemia who presents to the ED with chest discomfort. Patient states that he has had this discomfort on and off for the last 3 days but acutely worsened at around 3 AM on day of presentation. He describes it as chest pressure across his chest and it woke him up from his sleep with associated shortness of breath. Pain is not associated with exertion and normally goes away within minutes but this pain remained constant, radiates to left armpit, posterior neck, and back. He states that this pain is different from his previous cardiac events in the past. Patient follows up with lining mechanic Dr. Sultana. Admitted for further workup of ACS. 05/01: No acute overnight events noted. Seen and examined at bedside with present. Patient denies having additional episodes of chest discomfort or shortness of breath, stating that he feels much better compared to yesterday. Otherwise, only complaint is that of a mild cough with production of clear sputum and Tessalon Perles added. Additionally, plans changed and patient will undergo cardiac cath tomorrow. Exam Vital Signs Temp Pulse Resp BP Pulse Ox O2 Del Method 96.9 F 92 14 112/72 97 Room Air 05/01/24 08:00 05/01/24 09:32 05/01/24 08:00 05/01/24 09:32 05/01/24 08:00 05/01/24 08:00 Narrative Exam General: AOx3, laying in bed comfortably, able to speak full sentences HEENT: NC/AT, mucous membranes moist, bilateral sclera anicteric Cardiovascular: regular rate and rhythm, S1/S2 present, no murmurs appreciated Pulmonary: clear to auscultation bilaterally, no rales/rhonchi/wheezes Abdominal: soft, non-tender, non-distended, no rebound/guarding, normal bowel sounds present Musculoskeletal: normal ROM, no peripheral edema Skin: warm and dry, intact, no rashes Neuro: CN II-XII intact, no focal deficits Objective Labs 05/01/24 05:38 05/01/24 05:38 Labs: Laboratory Results - last 24 hr 04/30/24 04/30/24 04/30/24 12:54 14:57 20:44 WBC RBC Hgb Hct MCV MCH MCHC RDW Std Deviation Plt Count Neut % (Auto) Lymph % (Auto) Graham % (Auto) Eos % (Auto) Baso % (Auto) Neut # (Auto) Lymph # (Auto) Graham # (Auto) Eos # (Auto) Baso # (Auto) Immature Gran # (Auto) Absolute Nucleated RBC Immature Gran % Nucleated RBC % PT INR APTT Sodium Potassium Chloride Carbon Dioxide Anion Gap BUN Creatinine Estim Creat Clear Calc eGFR BUN/Creatinine Ratio Glucose Calculated Osmolality Calcium Corrected Calcium Phosphorus 2.9 Magnesium Total Bilirubin AST ALT Alkaline Phosphatase Troponin I 0.239 H* 0.970 H* D 7.856 H* D Total Protein Albumin Globulin Albumin/Globulin Ratio Triglycerides Cholesterol LDL Cholesterol, Calc HDL Cholesterol Cholesterol/HDL Ratio TSH 04/30/24 05/01/24 05/01/24 22:30 02:57 05:38 WBC 14.4 H RBC 4.68 Hgb 14.9 Hct 44.3 MCV 95 MCH 31.8 MCHC 33.6 RDW Std Deviation 46.5 H Plt Count 226 Neut % (Auto) 70 Lymph % (Auto) 21 Graham % (Auto) 7 Eos % (Auto) 1 Baso % (Auto) 0 Neut # (Auto) 10.1 H Lymph # (Auto) 3.1 Graham # (Auto) 1.0 H Eos # (Auto) 0.2 Baso # (Auto) 0.0 Immature Gran # (Auto) 0.03 H Absolute Nucleated RBC 0.00 Immature Gran % 0 Nucleated RBC % 0 PT 11.0 INR 1.0 APTT 38.7 H D 54.4 H D Sodium 142 Potassium 4.0 Chloride 108 H Carbon Dioxide 24.5 Anion Gap 10 BUN 18 Creatinine 0.8 Estim Creat Clear Calc 87.7 eGFR > 60 BUN/Creatinine Ratio 23 H Glucose 103 Calculated Osmolality 285 Calcium 8.2 L Corrected Calcium 8.4 L Phosphorus 3.5 Magnesium 1.9 Total Bilirubin 1.1 AST 39 H ALT 24 Alkaline Phosphatase 107 Troponin I 9.212 H* D Total Protein 5.9 Albumin 3.7 D Globulin 2.2 L Albumin/Globulin Ratio 1.7 Triglycerides 113 Cholesterol 123 L LDL Cholesterol, Calc 66 HDL Cholesterol 34 L Cholesterol/HDL Ratio 3.6 L TSH 0.89 05/01/24 08:41 WBC RBC Hgb Hct MCV MCH MCHC RDW Std Deviation Plt Count Neut % (Auto) Lymph % (Auto) Graham % (Auto) Eos % (Auto) Baso % (Auto) Neut # (Auto) Lymph # (Auto) Graham # (Auto) Eos # (Auto) Baso # (Auto) Immature Gran # (Auto) Absolute Nucleated RBC Immature Gran % Nucleated RBC % PT INR APTT Sodium Potassium Chloride Carbon Dioxide Anion Gap BUN Creatinine Estim Creat Clear Calc eGFR BUN/Creatinine Ratio Glucose Calculated Osmolality Calcium Corrected Calcium Phosphorus Magnesium Total Bilirubin AST ALT Alkaline Phosphatase Troponin I 5.176 H* D Total Protein Albumin Globulin Albumin/Globulin Ratio Triglycerides Cholesterol LDL Cholesterol, Calc HDL Cholesterol Cholesterol/HDL Ratio TSH Quality Measures Quality Measures none Advance care planning discussed with:: other Assessment & Plan Assessment Current Active Medications: Generic Name Dose Route Start Last Admin Trade Name Freq PRN Reason Stop Dose Admin Acetaminophen 650 mg 04/30/24 14:38 Acetaminophen 325 Mg Tablet PO 05/30/24 14:37 Q6H PRN Fever >101.5 Acetaminophen 650 mg 04/30/24 14:38 Acetaminophen 325 Mg Tablet PO 05/30/24 14:37 Q6H PRN PAIN SCALE 1-3 (mild Hydrocodone Bitart/Acetaminophen 1 tab 04/30/24 14:38 Hydrocodone/Apap 5/325 Tablet PO 05/05/24 14:37 Q4HR PRN PAIN SCALE 4-6 (Moderate Aspirin 81 mg 05/01/24 09:00 05/01/24 09:32 Aspirin Ec 81 Mg Tabec PO 05/31/24 08:59 81 mg QDAY JUAN PABLO Administration Atorvastatin Calcium 80 mg 04/30/24 18:30 05/01/24 09:31 Atorvastatin Calcium 20 Mg Tablet PO 05/30/24 18:29 80 mg DAILY JUAN PABLO Administration Clopidogrel Bisulfate 75 mg 05/01/24 09:00 05/01/24 09:31 Clopidogrel Bisulfate 75 Mg Tablet PO 05/31/24 08:59 75 mg QDAY JUAN PABLO Administration Dextrose 25 ml 04/30/24 14:38 Dextrose 50%-Water Inj 50 Ml Syringe IV 05/30/24 14:37 Q15MIN PRN BG 50-70 responsive npo pt Dextrose 50 ml 04/30/24 14:38 Dextrose 50%-Water Inj 50 Ml Syringe IV 05/30/24 14:37 Q15MIN PRN BG <50 OR BG <70 & pt unresponsive Glucagon 1 mg 04/30/24 14:38 Glucagon Inj 1 Mg Vial IM Q15MIN PRN BG <70, and no IV access Heparin Sodium/Dextrose 25,000 unit in 250 mls @ 9.525 mls/hr 04/30/24 14:30 05/01/24 06:41 Heparin In D5w Ivpb IV 05/14/24 14:29 14 units/kg/hr .Q24H JUAN PABLO 11.113 mls/hr Titration Protocol 12 UNITS/KG/HR Insulin Human Lispro 0 unit 04/30/24 17:00 05/01/24 07:45 Insulin Lispro (Admelog) 1 Unit/0.01 Ml Unit SC 05/30/24 16:59 Not Given AC [facility] Protocol Metoprolol Tartrate 25 mg 05/01/24 09:00 05/01/24 09:32 Metoprolol Tartrate 25 Mg Tablet PO 05/31/24 08:59 25 mg BID JUAN PABLO Administration Morphine Sulfate 2 mg 04/30/24 14:38 04/30/24 16:46 Morphine Sulf Inj 10 Mg/Ml Vial IVP 05/05/24 14:37 2 mg Q4H PRN Administration PAIN SCALE 7-10 (Severe Nitroglycerin 0.4 mg 04/30/24 14:44 Nitroglycerin 0.4 Mg Subl Btl #25 SL Q5MIN PRN CHEST PAIN Ondansetron HCl 4 mg 04/30/24 14:38 Ondansetron Inj 2 Mg/Ml Inj 2 Ml IV 05/30/24 14:37 Q6H PRN NAUSEA OR VOMITING Protocol Pantoprazole Sodium 40 mg 04/30/24 14:45 05/01/24 09:31 Pantoprazole Inj 40 Mg Vial IVP 05/30/24 14:44 40 mg QDAY JUAN PABLO Administration Sennosides 1 tab 04/30/24 14:38 04/30/24 22:06 Senna Tablet PO 05/30/24 14:37 1 tab QDAY PRN Administration constipation Protocol Plan Ulysses Brito is a 64-year-old male with a self-reported history of CABG and valve replacement (not on AC), nephrolithiasis, and hyperlipidemia who presents to the ED with chest discomfort. Admitted for further workup of ACS. #NSTEMI Presents with atypical chest pain that is substernal and pressure-like, but not associated with exertion and is not get better with rest. Troponins peaked at 9.2 and now downtrending. EKG with T wave inversions in leads V4, 5, 6. SOLO score 104, 5% probability of 6 months from admission. GIDEON score 4, urgent revascularization. Received aspirin 324 mg x 1, clopidogrel 300 mg x 1. ? Cardiology consulted, appreciate recommendations ? Left heart cath, 05/01 and n.p.o. after midnight ? Heparin drip ? Aspirin 81 mg p.o. daily ? Atorvastatin 80 mg p.o. daily ? Clopidogrel 75 mg p.o. daily ? Metoprolol tartrate 25 mg p.o. twice daily ? Nitroglycerin 0.4 mg sublingual as needed ? Morphine 2 mg IV every 4 hours as needed #Hyperlipidemia ? Atorvastatin as above #Prediabetes, A1c 6.0% on 03/2024 ? SSI AC ? Hypoglycemia protocol Hospital management: Disposition: pending left heart cath Fluids: Not indicated Diet: Cardiac, n.p.o. after midnight Lines: PIV DVT prophylaxis: Heparin drip GI prophylaxis: Pantoprazole 40 mg IV daily Basurto: Not indicated CODE STATUS: full code ----- Plan discussed with attending physician Dr. Humphrey and senior resident physician Dr. Yuliana Lozano MD PGY-1 Internal Medicine Attending Provider Attestation/Addendum I have discussed and was present for the essential components of the history, physical examination, diagnosis, and treatment plan with the resident. I agree with the patient's care as documented by the resident and amended herein by me. Pasquale Humphrey, DO. Patient seen and evaluated this AM. Vital signs stable, patient afebrile overnight, patient did not endorse any chest pain this morning, troponin peaked at 9.2 however has down trended to 5 this morning. Cath was originally scheduled for today however will be rescheduled tomorrow due to Email Campaign Manager availability. Dr. Sultana consulted, appreciate recommendations, will continue heparin drip, aspirin, statin, Plavix and beta-rosalva at this time for NSTEMI. Although this document has been carefully reviewed, there may still be some phonetic and other typographical errors. These errors are purely grammatical due to imperfections in the software program and should not be construed in any way to compromise the substance of the patient's medical care during this visit.
--- NOTE | 2024-05-01 12:59 | PC.SS ---
SS follow up note; Pending Assistant Editor today.
[2024-05-01 13:25] LABS: Partial Thromboplastin Time 47.9 Seconds (22.0-36.0)
[2024-05-01] MEDS: BENZONATATE 100 MG CAPSULE PO (13:46)
--- NOTE | 2024-05-01 13:49 | ECHO_ITS ---
Transthoracic Echo Report Ht (in): 65 Wt (lb): 170 Exam Location: Echo Lab Status: Inpatient Simulation Developer: ELOISE Patrick^^^^ Indications: Procedure Performed: BP: 124 / 78 HR: 78 Technical Quality: Fair MEASUREMENTS (Male / Female) Normal Values 2D ECHO LV Diastolic Diameter PLAX 4.4 cm 4.2 - 5.9 / 3.9 - 5.3 cm LV Systolic Diameter PLAX 2.9 cm IVS Diastolic Thickness 1.0 cm 0.6 - 1.0 / 0.6 - 0.9 cm LVPW Diastolic Thickness 0.8 cm 0.6 - 1.0 / 0.6 - 0.9 cm LV Relative Wall Thickness 0.4 LVOT Diameter 2.1 cm Aortic Root Diameter 3.7 cm LA Systolic Diameter LX 3.8 cm 3.0 - 4.0 / 2.7 - 3.8 cm LV Ejection Fraction MOD 4C 61.7 % LV Cardiac Index MOD 4C 1940.8 cm?/min?m? LV Ejection Fraction 4C AL 62.9 % LV Cardiac Index 4C AL 2067.1 cm?/min?m? Ascending Aorta Diameter 3.2 cm DOPPLER AV Peak Velocity 105.4 cm/s AV Peak Gradient 4.4 mmHg AV Mean Gradient 3.0 mmHg AV Velocity Time Integral 26.0 cm LVOT Peak Velocity 88.7 cm/s LVOT Peak Gradient 3.1 mmHg LVOT Velocity Time Integral 33.6 cm LVOT Cardiac Index 4775.1 cm?/min?m? AV Area Cont Eq vti 4.5 cm? AV Area Cont Eq pk 2.9 cm? MV Area PHT 4.2 cm? Mitral E Point Velocity 46.6 cm/s Mitral A Point Velocity 77.0 cm/s Mitral E to A Ratio 0.6 LV E' Lateral Velocity 8.6 cm/s Mitral E to LV E' Lateral Ratio 5.4 LV E' Septal Velocity 8.3 cm/s Mitral E to LV E' Septal Ratio 5.6 TR Peak Velocity 217.0 cm/s TR Peak Gradient 18.8 mmHg PV Peak Velocity 90.4 cm/s PV Peak Gradient 3.3 mmHg RVOT Peak Velocity 52.5 cm/s FINDINGS Left Ventricle Normal left ventricular size, wall thickness, systolic function with no obvious regional wall motion abnormalities. There is grade I diastolic dysfunction of the left ventricle (impaired relaxation pattern). The left ventricular ejection fraction is normal, estimated at 55-60%. Right Ventricle The right ventricle is normal in size and systolic function. The estimated right ventricular systolic pressure, 19 mmHg. Left Atrium The left atrium is normal by two-dimensional, color flow and Doppler imaging with no structural abnormalities, no thrombus formation present. Right Atrium The right atrium is normal by two-dimensional imaging, color flow and Doppler imaging with no structural abnormalities, no thrombus formation present. Atrial Septum The interatrial septum appears normal with no evidence of a shunt. Aorta The aorta is normal by two-dimensional, color flow and Doppler interrogation. Mitral Valve Mild mitral regurgitation. Mild mitral annular calcification. Aortic Valve The aortic valve is trileaflet and normal by two-dimensional, color flow and Doppler interrogation. There is no significant aortic valve regurgitation. Tricuspid Valve There is mild tricuspid valve regurgitation. Pulmonic Valve Trivial pulmonic valve regurgitation. Vessels The pulmonary artery appears normal. The inferior vena cava pulmonary and hepatic veins appear normal. Pericardium The pericardium is normal by two-dimensional imaging. There is no significant pericardial effusion. CONCLUSIONS indication: NSTEMI LV appears normal with EF 55-60%. Diastolic Dysfunction I present. RV appears normal with RVSP 20 mmHg. Mild MR & MAC Mild TR Maico Sultana (Electronically Signed) Final Date: 03 May 2024 16:24
[2024-05-01] MEDS: HEPARIN SOD INJ 5000 UNIT/ML VIAL 2000 UNIT IVP (14:09)
[2024-05-01] MEDS: Heparin/D5w 25K 250 ML Ivpb 25,000 UNIT/250 ML BAG 11.113 UNIT IV (14:10)
[2024-05-01 15:58] LABS: Troponin I 2.965 ng/mL (0.0-0.045)
[2024-05-01] MEDS: INSULIN LISPRO (AdmeLOG) 1 UNIT/0.01 ML UNIT SC (17:23)
--- NOTE | 2024-05-01 19:42 | PC.NURSE ---
DR. LUTHER ON THE FLOOR. PT STATING HE HAS A PRODUCTIVE COUGH WITH FERRER, THICK SPUTUM. TESSALON PEARLS NOT DUE UNTIL 2100. PT UNCOMFORTABLE, WBC AT 14.4. CXR SHOWS EARLY SIGNS OF PNA. MD TO PLACE ORDERS
[2024-05-01] MEDS: guaiFENesin/P-EPHED TABLET 1 TAB PO (20:04)
[2024-05-01 20:59] LABS: Partial Thromboplastin Time 76.9 Seconds (22.0-36.0)
[2024-05-02] VITALS (19 sets, daily range): BP systolic 113–157; BP diastolic 66–87; PULSE 62–77; RESP 11–93; TEMP 36.1–36.7; O2SAT 94–100
--- NOTE | 2024-05-02 00:12 | EKG_ITS ---
[facility] Test Date: 2024-05-02 Pat Name: ALBIN PEREZ Department: Room: S271A Gender: Male Stock Puller: VALE : 1960 Requested By: Shubham Gabriel Order Number: [id number] Reading MD: Shubham Gabriel Measurements Intervals [place] Rate: 66 P: 48 HI: 178 QRS: 53 QRSD: 93 T: 110 QT: 418 QTc: 441 Interpretive Statements SINUS RHYTHM MINIMAL ST DEPRESSION Compared to ECG 04/30/2024 21:47:53 ST (T wave) deviation now present Ventricular premature complex(es) no longer present T-wave abnormality no longer present Possible ischemia no longer present /store/S0/[id number]/ecg/[id number].pdf
--- NOTE | 2024-05-02 00:23 | PC.NURSE ---
DR. HEDRICK MADE AWARE OF PT WITH LEFT SIDED SHARP PAIN X2, BACK TO BED, WITH EPISODES LASTING ONLY A FEW SECONDS PER PT. BP 141/85, HR 60'S. SR WITH OCCASSIONAL PVC'S ON THE MONITOR. NO ABNORMAL RHYTHM AT THE TIME OF EPISODE. NEW ORDER FOR EKG GIVEN.
[2024-05-02 01:42] LABS: Troponin I 2.309 ng/mL (0.0-0.045)
[2024-05-02 05:45] LABS: Basophils # (Auto) 0.1 Thou/mm3 (0.0-0.2); Basophils % (Auto) 1 % (0-2.5); Eosinophils # (Auto) 0.2 Thou/mm3 (0.0-0.5); Eosinophils % (Auto) 2 % (0-10); Hematocrit 45.7 % (41.0-53.0); Hemoglobin 15.4 g/dL (13.5-16.0); Immature Granulocytes % (Auto) 0 % (0-0); Immature Granulocytes Auto 0.03 Thou/mm3 (0.00-0.00); Lymphocytes # (Auto) 4.1 Thou/mm3 (1.0-4.8); Lymphocytes % (Auto) 36 % (10-50); Mean Corpuscular HGB Conc 33.7 g/dl (31.0-37.0); Mean Corpuscular Hemoglobin 31.7 pg (25.0-35.0); Mean Corpuscular Volume 94 fL (80-100); Monocytes # (Auto) 0.9 Thou/mm3 (0.0-0.8); Monocytes % (Auto) 8 % (0-12); Neutrophils % (Auto) 53 % (37-80); Nucleated Red Blood Cell % 0 /100 WBC (0); Platelet Count 244 Thou/mm3 (140-440); RDW Standard Deviation 45.7 fL (35.1-43.9); Red Blood Count 4.86 Miln/mm3 (4.50-5.90); White Blood Count 11.2 Thou/mm3 (3.8-10.6)
[2024-05-02 06:10] LABS: Alanine Aminotransferase 21 U/L (10-49); Albumin, Serum 3.9 gm/dL (3.4-4.8); Albumin/Globulin Ratio 1.8 (1.2-2.2); Alkaline Phosphatase 112 U/L (46-116); Anion Gap 9 (7-16); Aspartate Amino Transferase 24 U/L (0-34); BUN/Creatinine Ratio 18 Ratio (12-20); Blood Urea Nitrogen 14 mg/dL (9-23); Calcium 8.7 mg/dL (8.3-10.6); Calcium (Corrected) 8.8 mg/dL (8.5-10.1); Carbon Dioxide 24.3 mMol/L (20.0-31.0); Chloride 108 mMol/L (98-107); Creatinine (Component) 0.8 mg/dL (0.6-1.3); Estimated Creatinine Clearance 89.1 mL/min (>60); Globulin 2.2 gm/dL (2.3-3.5); Glucose 101 mg/dL (74-106); Magnesium 2.1 mg/dL (1.6-2.6); Osmolality,Calculated 281 (275-295); Phosphorous 2.6 mg/dL (2.4-5.1); Sodium 141 mMol/L (136-145); Total Protein 6.1 gm/dL (5.7-8.2); eGFR > 60 See Note
[2024-05-02 06:11] LABS: Partial Thromboplastin Time 77.1 Seconds (22.0-36.0)
--- NOTE | 2024-05-02 06:30 | PC.NURSE ---
DR. HEDRICK MADE AWARE OF FREQUENT PVC'S/RUNS OF 3. BP 121/74. PT ASYMPTOMATIC. K 4.0 MG 2.1 HR 70'S. NO NEW ORDERS SINCE PT IS ASYMPTOMATIC AND ELECTROLYTES ARE WNL. WILL WAIT UNTIL DUE TIME FOR METOPROLOL.
[2024-05-02] MEDS: MORPHINE SULF INJ 10 MG/ML VIAL 2 MG IVP (07:54)
[2024-05-02] MEDS: ATORVASTATIN CALCIUM 20 MG TABLET 80 MG PO (08:00)
[2024-05-02] MEDS: PANTOPRAZOLE INJ 40 MG VIAL IVP (08:00)
[2024-05-02] MEDS: METOPROLOL TARTRATE 25 MG TABLET PO ×2 (08:00→20:38)
[2024-05-02] MEDS: ASPIRIN EC 81 MG TABEC PO (08:00)
[2024-05-02] MEDS: CLOPIDOGREL BISULFATE 75 MG TABLET PO (08:01)
--- NOTE | 2024-05-02 09:44 | PC.NURSE ---
Biomedical Photographer SADA Martinez called to take report for patient's heart cath scheduled today. Report on current status given to patient.
--- NOTE | 2024-05-02 09:45 | PC.SS ---
Ulysses Brito is a 64 Year old female admitted for NSTEMI. SS met with patient at bedside to review demographic information. Patient reports he utilizes a wheelchair, Rollator Walker to assist with ambulation, patient is able to complete ADL's independently. Patient reports Pharmacy of choice is [facility]. PCP is Dr. Harrison. Patient reports his Daughter, Zoya Brito is his surrogate decision maker [phone]. At time of discharge family will provide transportation. Next of kin, Zoya Brito [phone] Discharge plan: Home
[2024-05-02] MEDS: HYDROcodone/APAP 5/325 TABLET 1 TAB PO (10:00)
--- NOTE | 2024-05-02 10:05 | PC.NURSE ---
Pt c/o pain to his back, from mid back extending to head. Pt is very upset the morphine he received earlier was not affective and already spoke with the doctor about taking something stronger like the 10mg of percocet he takes at home. Per Dr. Lozano he is aware of pt wanting medication but he needs to speak to his attending before ordering his percocet. [place] was given at this time to help relieve some pain.
[2024-05-02 10:23] LABS: Prothrombin Time 11.2 Seconds (9.0-12.2)
--- NOTE | 2024-05-02 10:26 | PC.NURSE ---
[facility] lab called to stop heparin gtt.
--- NOTE | 2024-05-02 11:11 | ESPR_ITS ---
<Statement entered by Weston Bridges MD - 05/02/24 14:40> Patient was seen and examined at the bedside. Patient reported to have mild chest pain last night which improved with pain medications. Vitals were stable this morning. Patient was satting well on room air. White count slightly improved at 11.2. Kidney functions unremarkable. Patient is undergoing cardiac angiogram today. Left heart cath showed significant crow vessel disease. Significant lesion in proximal RCA. Angioplasty and stent placement in proximal RCA. Cardiology recommended to continue aspirin and Plavix for stent placement. Will follow-up with further cardiology recommendations. Close monitoring on vitals post cardiac cath. All labs and orders were reviewed. I saw and examined the patient, and I agree with current management stated by Dr Blake MD,PGY1. Plan of care was discussed with the attending physician and resident physician. Disclaimer: Despite multiple revisions, due to the dictation software being used, the document bellow may not be free of grammatical errors including phonetic/typographic errors. However, this does not deter from our commitment to providing health care in the patient's best interest in mind. Dr. Yuliana MD, PGY 2 Documentation for date of: 05/02/24 Subjective Subjective Interval history: Ulysses Brito is a 64-year-old male with a self-reported history of CABG and valve replacement (not on AC), nephrolithiasis, and hyperlipidemia who presents to the ED with chest discomfort. Patient states that he has had this discomfort on and off for the last 3 days but acutely worsened at around 3 AM on day of presentation. He describes it as chest pressure across his chest and it woke him up from his sleep with associated shortness of breath. Pain is not associated with exertion and normally goes away within minutes but this pain remained constant, radiates to left armpit, posterior neck, and back. He states that this pain is different from his previous cardiac events in the past. Patient follows up with long wall shear operator Dr. Sultana. Admitted for further workup of ACS. 05/01: No acute overnight events noted. Seen and examined at bedside with present. Patient denies having additional episodes of chest discomfort or shortness of breath, stating that he feels much better compared to yesterday. Otherwise, only complaint is that of a mild cough with production of clear sputum and Tessalon Perles added. Additionally, plans changed and patient will undergo cardiac cath tomorrow. 05/02: No acute overnight events noted. However, patient did endorse sharp left-sided chest pain that subsided very quickly. Troponin and EKG ordered at that time and were unremarkable. At bedside, patient did not have any complaints other than chronic back pain. Plans for cardiac cath today. Exam Vital Signs Temp Pulse Resp BP Pulse Ox O2 Del Method 97.5 F 71 22 H 134/75 H 100 Room Air 05/02/24 08:00 05/02/24 08:00 05/02/24 08:00 05/02/24 08:00 05/02/24 08:00 05/02/24 08:00 Narrative Exam General: AOx3, laying in bed comfortably, able to speak full sentences HEENT: NC/AT, mucous membranes moist, bilateral sclera anicteric Cardiovascular: regular rate and rhythm, S1/S2 present, no murmurs appreciated Pulmonary: clear to auscultation bilaterally, no rales/rhonchi/wheezes Abdominal: soft, non-tender, non-distended, no rebound/guarding, normal bowel sounds present Musculoskeletal: normal ROM, no peripheral edema Skin: warm and dry, intact, no rashes Neuro: CN II-XII intact, no focal deficits Objective Labs 05/03/24 05:31 05/03/24 05:31 Labs: Laboratory Results - last 24 hr 05/01/24 05/01/24 05/01/24 12:55 15:05 20:23 WBC RBC Hgb Hct MCV MCH MCHC RDW Std Deviation Plt Count Neut % (Auto) Lymph % (Auto) [place] % (Auto) Eos % (Auto) Baso % (Auto) Neut # (Auto) Lymph # (Auto) [place] # (Auto) Eos # (Auto) Baso # (Auto) Immature Gran # (Auto) Absolute Nucleated RBC Immature Gran % Nucleated RBC % PT INR APTT 47.9 H 76.9 H D Sodium Potassium Chloride Carbon Dioxide Anion Gap BUN Creatinine Estim Creat Clear Calc eGFR BUN/Creatinine Ratio Glucose Calculated Osmolality Calcium Corrected Calcium Phosphorus Magnesium Total Bilirubin AST ALT Alkaline Phosphatase Troponin I 2.965 H* D Total Protein Albumin Globulin Albumin/Globulin Ratio 05/02/24 05/02/24 00:49 04:51 WBC 11.2 H RBC 4.86 Hgb 15.4 Hct 45.7 MCV 94 MCH 31.7 MCHC 33.7 RDW Std Deviation 45.7 H Plt Count 244 Neut % (Auto) 53 Lymph % (Auto) 36 [place] % (Auto) 8 Eos % (Auto) 2 Baso % (Auto) 1 Neut # (Auto) 6.0 Lymph # (Auto) 4.1 [place] # (Auto) 0.9 H Eos # (Auto) 0.2 Baso # (Auto) 0.1 Immature Gran # (Auto) 0.03 H Absolute Nucleated RBC 0.00 Immature Gran % 0 Nucleated RBC % 0 PT 11.2 INR 1.0 APTT 77.1 H Sodium 141 Potassium 4.0 Chloride 108 H Carbon Dioxide 24.3 Anion Gap 9 BUN 14 Creatinine 0.8 Estim Creat Clear Calc 89.1 eGFR > 60 BUN/Creatinine Ratio 18 Glucose 101 Calculated Osmolality 281 Calcium 8.7 Corrected Calcium 8.8 Phosphorus 2.6 Magnesium 2.1 Total Bilirubin 1.0 AST 24 ALT 21 Alkaline Phosphatase 112 Troponin I 2.309 H* D Total Protein 6.1 Albumin 3.9 Globulin 2.2 L Albumin/Globulin Ratio 1.8 Quality Measures Quality Measures none Advance care planning discussed with:: other Assessment & Plan Assessment Current Active Medications: Generic Name Dose Route Start Last Admin Trade Name Freq PRN Reason Stop Dose Admin Acetaminophen 650 mg 04/30/24 14:38 Acetaminophen 325 Mg Tablet PO 05/30/24 14:37 Q6H PRN Fever >101.5 Acetaminophen 650 mg 04/30/24 14:38 Acetaminophen 325 Mg Tablet PO 05/30/24 14:37 Q6H PRN PAIN SCALE 1-3 (mild Hydrocodone Bitart/Acetaminophen 1 tab 04/30/24 14:38 05/02/24 10:00 Hydrocodone/Apap 5/325 Tablet PO 05/05/24 14:37 1 tab Q4HR PRN Administration PAIN SCALE 4-6 (Moderate Aspirin 81 mg 05/01/24 09:00 05/02/24 08:00 Aspirin Ec 81 Mg Tabec PO 05/31/24 08:59 81 mg QDAY JUAN PABLO Administration Atorvastatin Calcium 80 mg 04/30/24 18:30 05/02/24 08:00 Atorvastatin Calcium 20 Mg Tablet PO 05/30/24 18:29 80 mg DAILY JUAN PABLO Administration Benzonatate 100 mg 05/01/24 13:27 05/01/24 13:46 Benzonatate 100 Mg Capsule PO 05/31/24 13:26 100 mg Q8HR PRN Administration COUGH Protocol Clopidogrel Bisulfate 75 mg 05/01/24 09:00 05/02/24 08:01 Clopidogrel Bisulfate 75 Mg Tablet PO 05/31/24 08:59 75 mg QDAY JUAN PABLO Administration Dextrose 25 ml 04/30/24 14:38 Dextrose 50%-Water Inj 50 Ml Syringe IV 05/30/24 14:37 Q15MIN PRN BG 50-70 responsive npo pt Dextrose 50 ml 04/30/24 14:38 Dextrose 50%-Water Inj 50 Ml Syringe IV 05/30/24 14:37 Q15MIN PRN BG <50 OR BG <70 & pt unresponsive Glucagon 1 mg 04/30/24 14:38 Glucagon Inj 1 Mg Vial IM Q15MIN PRN BG <70, and no IV access Guaifenesin 1 tab 05/01/24 19:38 05/01/24 20:04 Guaifenesin/P-Ephed Tablet PO 05/31/24 20:59 1 tab BID PRN Administration congestion Heparin Sodium/Dextrose 25,000 unit in 250 mls @ 9.525 mls/hr 04/30/24 14:30 05/02/24 06:32 Heparin In D5w Ivpb IV 05/14/24 14:29 16 units/kg/hr .Q24H [facility] 12.701 mls/hr Titration Protocol 12 UNITS/KG/HR Insulin Human Lispro 0 unit 04/30/24 17:00 05/02/24 07:44 Insulin Lispro (Admelog) 1 Unit/0.01 Ml Unit SC 05/30/24 16:59 Not Given AC [facility] Protocol Metoprolol Tartrate 25 mg 05/01/24 09:00 05/02/24 08:00 Metoprolol Tartrate 25 Mg Tablet PO 05/31/24 08:59 25 mg BID JUAN PABLO Administration Morphine Sulfate 2 mg 04/30/24 14:38 05/02/24 07:54 Morphine Sulf Inj 10 Mg/Ml Vial IVP 05/05/24 14:37 2 mg Q4H PRN Administration PAIN SCALE 7-10 (Severe Nitroglycerin 0.4 mg 04/30/24 14:44 Nitroglycerin 0.4 Mg Subl Btl #25 SL Q5MIN PRN CHEST PAIN Ondansetron HCl 4 mg 04/30/24 14:38 Ondansetron Inj 2 Mg/Ml Inj 2 Ml IV 05/30/24 14:37 Q6H PRN NAUSEA OR VOMITING Protocol Pantoprazole Sodium 40 mg 04/30/24 14:45 05/02/24 08:00 Pantoprazole Inj 40 Mg Vial IVP 05/30/24 14:44 40 mg QDAY JUAN PABLO Administration Sennosides 1 tab 04/30/24 14:38 04/30/24 22:06 Senna Tablet PO 05/30/24 14:37 1 tab QDAY PRN Administration constipation Protocol Plan Ulysses Brito is a 64-year-old male with a self-reported history of CABG and valve replacement (not on AC), nephrolithiasis, and hyperlipidemia who presents to the ED with chest discomfort. Admitted for further workup of ACS. #NSTEMI Presents with atypical chest pain that is substernal and pressure-like, but not associated with exertion and is not get better with rest. Troponins peaked at 9.2 and now downtrending. EKG with T wave inversions in leads V4, 5, 6. SOLO score 104, 5% probability of 6 months from admission. GIDEON score 4, urgent revascularization. Received aspirin 324 mg x 1, clopidogrel 300 mg x 1. ? Cardiology consulted, appreciate recommendations ? Left heart cath, 05/02 and n.p.o. after midnight ? Heparin drip held ? Aspirin 81 mg p.o. daily ? Atorvastatin 80 mg p.o. daily ? Clopidogrel 75 mg p.o. daily ? Metoprolol tartrate 25 mg p.o. twice daily ? Nitroglycerin 0.4 mg sublingual as needed ? Morphine 2 mg IV every 4 hours as needed ? Follow-up echo #Hyperlipidemia ? Atorvastatin as above #Prediabetes, A1c 6.0% on 03/2024 ? SSI AC ? Hypoglycemia protocol ? Consider discharging on metformin Hospital management: Disposition: pending left heart cath Fluids: Not indicated Diet: Cardiac, n.p.o. after midnight Lines: PIV DVT prophylaxis: Heparin drip GI prophylaxis: Pantoprazole 40 mg IV daily Basurto: Not indicated CODE STATUS: full code ----- Plan discussed with attending physician Dr. Thomson and senior resident physician Dr. Yuliana Lozano MD PGY-1 Internal Medicine Attending Provider Attestation/Addendum I reviewed labs, imaging, EKG, home medications and prior available records. Face to face evaluation was performed by me. I have personally examined the patient and discussed assessment and plan with the IM team. I reviewed the resident note and agree with the plan with exceptions as below. Non-STEMI History of CAD Hyperlipidemia History of tobacco use Prediabetes Consulted cardiology: Plan for cardiac catheterization on 05/02 Continue aspirin and atorvastatin Continue heparin drip Follow-up echocardiogram
--- NOTE | 2024-05-02 14:07 | PD.CARDCATH ---
Cardiac Cath Procedure Procedure Narrative Date of the procedure 05/02/2024 Title of the procedure 1. Left heart catheterization 2. Left coronary angiogram 3. Right coronary angiogram 4. Left ventriculogram 5. Conscious sedation 6. Radiographic interpretation supervision 7. Ultrasound guidence for Right femoral access 8. Angiogram of the vein graft to the obtuse marginal 9 angiogram of the left internal mammary artery to the LAD 10 intravascular ultrasound examination of the right coronary artery 11.angioplasty and stent placement right coronary artery Indication for the procedure This is a 64-year-old gentleman with past medical history of hypertension hyperlipidemia coronary artery disease Prior history of bypass surgery Patient was complaining of atypical chest pain Cardiolite scan was abnormal Cardiac catheterization coronary angiogram was planned as outpatient While waiting for the procedure patient started having severe chest pain was admitted to the hospital He ruled in for non-ST elevation UT peak troponin 7 Cardiac catheter cholangiogram recommended Procedure This is done in the cardiac lab under continuous electrocardiographic monitoring Intermittent blood pressure monitoring right radial arterial access obtained using modified Seldinger technique 6 [place] femoral sheath was placed under ultrasound guidence J or 4 catheter used for surgery right coronary artery JR4 cath was also used for selective renal vein graft to the obtuse marginal IM catheter used for selective injection Left internal mammary artery JL 4 catheter used for selective images of the left coronary artery Findings Hemodynamics Left ventricular systolic function is 55% Left ventricular end-diastolic pressure is 16 mmHg Gradient across the aortic valve is 0 mm gradient Coronary anatomy Right dominance Left main coronary artery is showing 99% stenosis of the distal end Left anterior descending artery is occluded 100% at the mid segment Diagonal vessel is diffusely diseased proximally 80% Left circumflex artery is a nondominant vessel with diffuse disease 40% Obtuse marginal vessel is diffuse disease 40 to 50% Right coronary artery is showing a proximal lesion about 70% Posterior descending artery is diffuse disease in the ostium of the PDA about 80% Vein graft to the obtuse marginal is occluded 100% [place] to the LAD appears to be widely patent No other graft visualized Conclusion Significant solomon vessel disease KIMBALL to the LAD appears to be widely patent Vein graft to the obtuse marginal occluded 100% [place] RCA has a borderline lesion Recommendation KIMBALL to the LAD patent Borderline lesion in the area which is not grafted Intravascular ultrasound examination of the RCA JR4 guiding cath was used to obtain coaxial access ferry pilot 50 wire was used to cross the lesion IVUS catheter was prepared in the usual fashion IVUS examination was done findings IVUS examination reveals a 72 to 75% stenosis of the proximal RCA Conclusion Significant lesion in the proximal RCA which is a dominant vessel We will proceed with intervention Angioplasty and stent placement of proximal RCA JR4 guiding catheter used to obtain coaxial access Vinyl Hanger 50 wire was used to cross the lesion 4 x 15 mm Ruel stent was placed across the lesion and dilated up to 14 orlin Post an angiogram reveals adequate expansion of the entire length of the stent Conclusion Successful angioplasty and stent placement of the proximal RCA
--- NOTE | 2024-05-02 15:08 | PC.SS ---
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
--- NOTE | 2024-05-02 15:55 | PC.NURSE ---
1522 patient is awake, alert, breathing unlabored s/pLHC with PCI, dressing to right groin dry with no bleeding or hematoma, report received from Ryan TOMLIN, patient to recover in golf course laborer and be discharged back to room at 1615. Heparin drip discontinued, continue aspirin and plavix as scheduled.
--- NOTE | 2024-05-02 16:11 | PC.NURSE ---
patient awake, alert, breathing unlabored, dressing to right groin dry with no bleeding or hematoma, patient able to torerate soup with no nausea or vomiting, report given to Azalea Juarez RN, will get patient ready to go back to room 271
--- NOTE | 2024-05-02 17:00 | PC.NURSE ---
5045 patinent transferred back to room 271 with tele box
[2024-05-03] VITALS: BP 153/80; PULSE 66; RESP 16; TEMP 36.8; O2SAT 98
[2024-05-03 00:23] VITALS: PULSE 78; RESP 18; RESP 95
[2024-05-03 04:00] VITALS: BP 105/56; PULSE 68; PULSE 72; RESP 16; TEMP 36.1; O2SAT 96
[2024-05-03 05:43] VITALS: BMI 28.4
[2024-05-03 05:52] LABS: Basophils % (Auto) 0 % (0-2.5); Eosinophils # (Auto) 0.2 Thou/mm3 (0.0-0.5); Eosinophils % (Auto) 2 % (0-10); Hematocrit 47.4 % (41.0-53.0); Immature Granulocytes % (Auto) 0 % (0-0); Immature Granulocytes Auto 0.04 Thou/mm3 (0.00-0.00); Lymphocytes # (Auto) 2.6 Thou/mm3 (1.0-4.8); Lymphocytes % (Auto) 23 % (10-50); Mean Corpuscular HGB Conc 33.8 g/dl (31.0-37.0); Mean Corpuscular Hemoglobin 31.6 pg (25.0-35.0); Mean Corpuscular Volume 94 fL (80-100); Monocytes % (Auto) 9 % (0-12); Neutrophils # (Auto) 7.4 Thou/mm3 (1.8-7.7); Neutrophils % (Auto) 66 % (37-80); Nucleated Red Blood Cell % 0 /100 WBC (0); Platelet Count 247 Thou/mm3 (140-440); RDW Standard Deviation 45.3 fL (35.1-43.9); Red Blood Count 5.07 Miln/mm3 (4.50-5.90); White Blood Count 11.3 Thou/mm3 (3.8-10.6)
[2024-05-03 06:19] LABS: Alanine Aminotransferase 21 U/L (10-49); Albumin, Serum 4.2 gm/dL (3.4-4.8); Albumin/Globulin Ratio 1.8 (1.2-2.2); Alkaline Phosphatase 121 U/L (46-116); Anion Gap 10 (7-16); Aspartate Amino Transferase 21 U/L (0-34); BUN/Creatinine Ratio 19 Ratio (12-20); Bilirubin,Total 0.8 mg/dL (0.3-1.2); Blood Urea Nitrogen 15 mg/dL (9-23); Calcium 9.1 mg/dL (8.3-10.6); Calcium (Corrected) 9.1 mg/dL (8.5-10.1); Chloride 106 mMol/L (98-107); Creatinine (Component) 0.8 mg/dL (0.6-1.3); Estimated Creatinine Clearance 88.4 mL/min (>60); Globulin 2.4 gm/dL (2.3-3.5); Glucose 95 mg/dL (74-106); Osmolality,Calculated 280 (275-295); Phosphorous 3.8 mg/dL (2.4-5.1); Sodium 140 mMol/L (136-145); Total Protein 6.6 gm/dL (5.7-8.2); eGFR > 60 See Note
[2024-05-03 08:00] VITALS: BP 105/67; PULSE 80; PULSE 84; RESP 14; TEMP 36.7; O2SAT 96
[2024-05-03] MEDS: ATORVASTATIN CALCIUM 20 MG TABLET 80 MG PO (09:02)
[2024-05-03] MEDS: ASPIRIN EC 81 MG TABEC PO (09:02)
[2024-05-03 09:03] VITALS: BP 105/67; PULSE 84
[2024-05-03] MEDS: CLOPIDOGREL BISULFATE 75 MG TABLET PO (09:03)
[2024-05-03] MEDS: PANTOPRAZOLE INJ 40 MG VIAL IVP (09:03)
--- NOTE | 2024-05-03 10:25 | ESDS_ITS ---
<Statement entered by Weston Bridges MD - 05/03/24 17:38> I saw and examined the patient, and I agree with current management stated by Dr Blake MD,PGY1. Plan of care was discussed with the attending physician and resident physician. Disclaimer: Despite multiple revisions, due to the dictation software being used, the document bellow may not be free of grammatical errors including phonetic/typographic errors. However, this does not deter from our commitment to providing health care in the patient's best interest in mind. Dr. Yuliana MD, PGY 2 Planned Discharge Date 05/03/24 DS: Providers Provider Date of admission: 04/30/24 14:38 Primary care physician: Robbie Harrison MD Admitting Provider: Humberto Humphrey DO Attending Provider on Admission: Jaun Thomson MD Consults: 04/30/24 14:41 Consult to Cardiology Stat Comment: Consulting Provider: Hank Sultana Attending Provider on DC: Judah Lozano MD Discharging Provider: Judah Lozano MD DS: Diagnosis Problem List Completed Was Problem List Reviewed/Reconciled?: Yes Hospital Course Hospital Course Hospital course: Ulysses Brito is a 64-year-old male with a self-reported history of CABG and valve replacement (not on AC), nephrolithiasis, and hyperlipidemia who presents to the ED with chest discomfort. Patient states that he has had this discomfort on and off for the last 3 days but acutely worsened at around 3 AM on day of presentation. He describes it as chest pressure across his chest and it woke him up from his sleep with associated shortness of breath. Pain is not associated with exertion and normally goes away within minutes but this pain remained constant, radiates to left armpit, posterior neck, and back. He states that this pain is different from his previous cardiac events in the past. Patient follows up with encephalographer Dr. Sultana. Admitted for further workup of ACS. Throughout hospital course, no acute overnight events noted. Patient was started on heparin drip, aspirin, plavix, and statin. Patient did endorse sharp left-sided chest pain on second hospital night but subsided quickly without intervention. Troponins peaked at 9 and eventually downtrended. He underwent left heart cath on 05/02 that showed LV EF of 55%, significant [place] valve diseae, KIMBALL to LAD patent, vein graft to obtuse marginal 100% occluded, and [place] RCA with borderline lesion that underwent angioplasty and stenting. Will be discharged with clopidogrel and recommended to follow-up with Dr. Sultana outpatient within 1 to 2 weeks of discharge. Also recommended to obtain echocardiogram outpatient. Diagnoses during admission: #NSTEMI #Hyperlipidemia #Prediabetes, A1c 6.0% on 03/2024 Discharge instructions: - Start taking clopidogrel 75 mg daily and make sure to follow-up with your encephalographer, Dr. Sultana - Continue taking all other home medications as prescribed - Follow-up with your encephalographer within 1-2 weeks of discharge - Obtain your echocardiogram outpatient with your encephalographer - Follow-up with your primary care physician within 1-2 weeks of discharge - Return to the ED if symptoms worsen or recur Time Spent with Patient Time attestation: Total time spent providing and/or coordinating discharge services: Exam Vital Signs Temp Pulse Resp BP Pulse Ox O2 Del Method 98.1 F 84 14 105/67 96 Room Air 05/03/24 08:00 05/03/24 09:03 05/03/24 08:00 05/03/24 09:03 05/03/24 08:00 05/03/24 08:00 Narrative Exam General: AOx3, laying in bed comfortably, able to speak full sentences HEENT: NC/AT, mucous membranes moist, bilateral sclera anicteric Cardiovascular: regular rate and rhythm, S1/S2 present, no murmurs appreciated Pulmonary: clear to auscultation bilaterally, no rales/rhonchi/wheezes Abdominal: soft, non-tender, non-distended, no rebound/guarding, normal bowel sounds present Musculoskeletal: normal ROM, no peripheral edema Skin: warm and dry, intact, no rashes Neuro: CN II-XII intact, no focal deficits Discharge Plan Plan Patient Disposition: HOME (Self Care) Disposition Comment: Hospitalist admit Dr. Sultana to consult Care Plan Goals: - Start taking clopidogrel 75 mg daily and make sure to follow-up with your encephalographer, Dr. Sultana - Continue taking all other home medications as prescribed - Follow-up with your encephalographer within 1-2 weeks of discharge - Obtain your echocardiogram outpatient with your encephalographer - Follow-up with your primary care physician within 1-2 weeks of discharge - Return to the ED if symptoms worsen or recur Prescriptions/Referrals Prescriptions/Med Rec: New clopidogrel 75 mg Tablet 75 mg PO QDAY 30 Days Qty: 30 0RF Continued oxycodone-acetaminophen [Percocet] 10-325 mg Tablet 1 tab PO Q8H PRN (Reason: Pain) atorvastatin 80 mg tablet 80 mg PO DAILY Patient Comments: take 1 tablet by mouth once daily aspirin 81 mg tablet,delayed release (DR/EC) 81 mg PO DAILY Patient Comments: take 1 tablet by mouth once daily metoprolol tartrate 25 mg tablet 25 mg PO Q12H Patient Comments: take 1 tablet by mouth twice a day Discontinued naproxen sodium 550 MG tablet 1 tab PO BID PRN (Reason: Pain) Qty: 90 Referrals: Robbie Harrison MD [Primary Care Provider] - Patient/Caregiver Discharge Instructions Education Materials: PCI Lifestyle, Angioplasty and Stent Placement for the Heart Print Language: Arabic Stand Alone Forms: [employer] Award Info., Patient Portal Info Letter Discharge Order Discharge Orders: Discharge (Routine); Ordered 05/03/24 Ordered By: Judah Lozano Quality Discharge Quality Measures VTE prophylaxis Attestestation MD Attestation I reviewed labs, imaging, EKG, home medications and prior available records. Face to face evaluation was performed by me. I have personally examined the patient and discussed assessment and plan with the IM team. I reviewed the resident note and agree with the plan with exceptions as below. Non-STEMI History of CAD Hyperlipidemia History of tobacco use Prediabetes Status post cardiac catheterization that showed coronary artery disease status post stenting to RCA EF is 55% during cardiac catheterization Continue aspirin, Plavix and atorvastatin Continue metoprolol Follow-up echocardiogram as outpatient Avoid tobacco use Outpatient follow-up with cardiology Time spent is 40 minutes. More than 50% of the time was spent on patient education and coordination of care.
[2024-05-03 11:00] VITALS: BP 132/81; PULSE 90; RESP 15; TEMP 36.4; O2SAT 96
== END 2024-05-03 11:21 | disposition home or self-care (01) | DRG 321 ==
LOC: SERX 14:38 → SERHOLD 14:56 → S2NX 20:00
PROVIDERS: Internal Medicine; Nurse Practitioner Primary Care; Student in an Organized Health Care Education/Training Program; Admitting Provider Student in an Organized Health Care Education/Training Program; Emergency Provider Emergency Medicine; PCP Family Medicine; Visit Provider Student in an Organized Health Care Education/Training Program
DX: I21.4 Non-ST elevation (NSTEMI) myocardial infarction (principal); J18.9 Pneumonia, unspecified organism; E78.5 Hyperlipidemia, unspecified; R73.03 Prediabetes; N40.0 Benign prostatic hyperplasia without lower urinary tract symptoms; K21.9 Gastro-esophageal reflux disease without esophagitis; I11.0 Hypertensive heart disease with heart failure; I50.9 Heart failure, unspecified; I25.10 Atherosclerotic heart disease of native coronary artery without angina pectoris; Z79.02 Long term (current) use of antithrombotics/antiplatelets; Z95.1 Presence of aortocoronary bypass graft; Z95.2 Presence of prosthetic heart valve; Z87.891 Personal history of nicotine dependence; Z79.82 Long term (current) use of aspirin; Z79.899 Other long term (current) drug therapy; G89.29 Other chronic pain; Z87.11 Personal history of peptic ulcer disease
CPT/HCPCS: 36415; 71046; 80053; 80061; 83690; 83735; 83880; 84100; 84443; 84484; 85025; 85347; 85610; 85730; 87811; 93005; 93306; 96365; 96366; 96375; 96376; 99152; 99153; 99291; A4216; A4649; C1753; C1760; C1769; C1874; C1887; C1894; J0171; J0461; J0583; J1643; J1644; J1815; J2250; J2270; J2310; J2371; J2470; J3010; J3475; J3490; Q0162; Q9967; A9270; J2305

== ENCOUNTER → 2024-07-21 | Outpatient (CLI) | payer OTHER, SELFPAY ==
[2024-07-21 10:20] LABS: Basophils # (Auto) 0.1 Thou/mm3 (0.0-0.2); Basophils % (Auto) 1 % (0-2.5); Eosinophils # (Auto) 0.2 Thou/mm3 (0.0-0.5); Eosinophils % (Auto) 2 % (0-10); Hematocrit 48.5 % (41.0-53.0); Hemoglobin 16.6 g/dL (13.5-16.0); Immature Granulocytes % (Auto) 0 % (0-0); Immature Granulocytes Auto 0.04 Thou/mm3 (0.00-0.00); Lymphocytes # (Auto) 2.8 Thou/mm3 (1.0-4.8); Lymphocytes % (Auto) 24 % (10-50); Mean Corpuscular HGB Conc 34.2 g/dl (31.0-37.0); Mean Corpuscular Hemoglobin 31.9 pg (25.0-35.0); Mean Corpuscular Volume 93 fL (80-100); Monocytes # (Auto) 0.9 Thou/mm3 (0.0-0.8); Monocytes % (Auto) 8 % (0-12); Neutrophils # (Auto) 7.8 Thou/mm3 (1.8-7.7); Neutrophils % (Auto) 66 % (37-80); Nucleated Red Blood Cell % 0 /100 WBC (0); Platelet Count 269 Thou/mm3 (140-440); RDW Standard Deviation 45.8 fL (35.1-43.9); Red Blood Count 5.21 Miln/mm3 (4.50-5.90); White Blood Count 11.9 Thou/mm3 (3.8-10.6)
[2024-07-21 10:33] LABS: Glucose Estimated Average 131 mg/dL (80-131); Hemoglobin A1C 6.2 % Hgb (4.8-6.0); Prostate Specific Antigen 3.44 ng/mL (0-4.00)
[2024-07-21 10:39] LABS: Alanine Aminotransferase 15 U/L (10-49); Albumin, Serum 4.5 gm/dL (3.4-4.8); Albumin/Globulin Ratio 1.9 (1.2-2.2); Alkaline Phosphatase 123 U/L (46-116); Anion Gap 9 (7-16); Aspartate Amino Transferase 19 U/L (0-34); BUN/Creatinine Ratio 14 Ratio (12-20); Blood Urea Nitrogen 15 mg/dL (9-23); Calcium 9.3 mg/dL (8.3-10.6); Calcium (Corrected) 9.3 mg/dL (8.5-10.1); Carbon Dioxide 27.6 mMol/L (20.0-31.0); Cardiac Risk Estimate 3.4 RATIO (4.0-6.7); Chloride 107 mMol/L (98-107); Cholesterol 148 mg/dL (132-200); Creatinine (Component) 1.1 mg/dL (0.6-1.3); Globulin 2.4 gm/dL (2.3-3.5); Glucose 113 mg/dL (74-106); HDL Cholesterol 44 mg/dL (40-60); LDL Cholesterol,Calculated 74 mg/dL (0-130); Osmolality,Calculated 288 (275-295); Potassium 4.2 mMol/L (3.4-5.1); Sodium 144 mMol/L (136-145); Total Protein 6.9 gm/dL (5.7-8.2); Triglycerides 148 mg/dL (30-150); eGFR > 60 See Note
== END | disposition home or self-care (01) ==
LOC: COPL 09:27
PROVIDERS: PCP Family Medicine; Referring Provider Family Medicine; Visit Provider Internal Medicine
DX: D64.9 Anemia, unspecified (principal); I25.10 Atherosclerotic heart disease of native coronary artery without angina pectoris; I50.9 Heart failure, unspecified; R16.0 Hepatomegaly, not elsewhere classified; R73.03 Prediabetes
CPT/HCPCS: 36415; 80053; 80061; 83036; 84153; 85025

== ENCOUNTER → 2024-08-02 | Outpatient (CLI) | payer OTHER, SELFPAY ==
--- NOTE | 2024-08-02 11:30 | XR_ITS ---
Examination: Abdomen sonogram, complete Date and time of exam: August 02, 2024 1032 hours INDICATIONS: Diagnosis of hepatomegaly. Technique: Multiple real-time grayscale transabdominal sonographic images of the abdomen have been obtained. Findings: Normal gallbladder Normal common bile duct 0.4 cm Pancreatic head 2.6 cm Aorta not enlarged Liver 14.6 cm fatty infiltration irregular contour Normal hepatopedal portal venous flow Patent IVC Right kidney 10.7 cm cortex 1.6 cm Left kidney 9.2 cm cortex 1.4 cm Mild renal parenchymal scar formation Spleen 6.1 cm IMPRESSION: Normal gallbladder Fatty liver suspect primary hepatocellular disease
== END | disposition home or self-care (01) ==
PROVIDERS: PCP Family Medicine; Referring Provider Family Medicine; Visit Provider Family Medicine
DX: K76.0 Fatty (change of) liver, not elsewhere classified (principal); K59.01 Slow transit constipation
CPT/HCPCS: 76700

== ENCOUNTER 2024-08-10 18:52 | Emergency (ER) | payer OTHER, SELFPAY ==
[2024-08-10 18:53] VITALS: BMI 29.1
[2024-08-10 19:29] VITALS: BP 128/75; PULSE 102; RESP 18; TEMP 37.3; O2SAT 97
--- NOTE | 2024-08-10 19:45 | XR_ITS ---
Examination: PA lateral chest 2 views TECHNIQUE: Upright PA and lateral chest 2 views Date and time: August 10, 2024, 1955 hours INDICATIONS: Chest pain and coughing beginning 3 days ago. FINDINGS: Heart size normal CABG. Minor atelectasis left base Accentuation of basilar bronchovascular markings. No lobar pneumonia IMPRESSION: Basilar bronchitis pattern
--- NOTE | 2024-08-10 19:50 | PD.EDURI ---
Upper Respiratory Inf. RME/HPI General Chief Complaint: Flu Like Symptoms Stated Complaint: HEADACHE WITH COUGH AND FEVER Time Seen by Provider: 08/10/24 19:44 Arrival date/time: 08/10/24 18:52 64M with history of CAD presents to ED with several days of ASENCIO, cough, sore, fevers/chills, and some CP when coughing. Patient denies SOB and CP when not coughing. Limitations: no limitations Related Data Home Medications ?Medication ?Instructions ?Recorded ?Confirmed oxycodone-acetaminophen 10 mg-325 1 tab PO Q8H PRN Pain 01/21/22 04/30/24 mg tablet (Percocet) aspirin 81 mg tablet,delayed 81 mg PO DAILY 04/30/24 04/30/24 release atorvastatin 80 mg tablet 80 mg PO DAILY 04/30/24 04/30/24 metoprolol tartrate 25 mg tablet 25 mg PO Q12H 04/30/24 04/30/24 Allergies Allergy/AdvReac Type Severity Reaction Status Date / Time Milk Containing Products Allergy Severe Nausea Verified 08/10/24 18:56 (Dairy) (Milk Containing Products) Review of Systems Review of Systems Systems Reviewed: All systems reviewed, normal except as documented Constitutional Constitutional: Reports system reviewed and no additional complaints, except as documented, Reports as per HPI, Reports chills, Reports fever(s) and Reports headache(s) ENT Ears, Nose, Mouth, and Throat: Reports as per HPI, Denies disequilibrium, Reports headache(s) and Reports sore throat Cardiovascular Cardiovascular: Reports system reviewed and no additional complaints, except as documented, Denies chest pain and Denies dyspnea Respiratory Respiratory: Reports system reviewed and no additional complaints, except as documented, Reports as per HPI, Reports cough, Denies dyspnea and Reports pain with cough Gastrointestinal Gastrointestinal: Reports system reviewed and no additional complaints, except as documented, Denies abdominal pain, Denies nausea and Denies vomiting Neurologic Neurologic: Reports system reviewed and no additional complaints, except as documented, Denies confusion, Denies disequilibrium and Reports headache(s) Psychiatric Psychiatric: Denies confusion Past Medical History Past Medical History NEUROLOGIC: Negative Neurological Disorders or Seizures CARDIAC: Positive Cardiac Disorders, Myocardial Infarction, Hypercholesterolemia and Valvular Heart Disease; Negative Congestive Heart Failure RESPIRATORY: Negative Chronic Obstructive Pulmonary Disease (COPD) GASTROINTESTINAL: Positive Gastrointestinal Disorders and Ulcer GENITOURINARY: Positive Genitourinary Disorders and Kidney Stones; Negative Renal Disease MUSCULOSKELETAL: Positive Musculoskeletal Disorders and Fractures ENT: Positive Cataracts ENDOCRINE: Negative Endocrine Disorders, Diabetes Mellitus Type 1 or Diabetes Mellitus Type 2 HEMATOLOGIC: Negative Blood Disorders OTHER HISTORY: Negative Autoimmune Disease, Falls, Blood Transfusions, Anesthesia Reactions, Organ Transplant, MRSA, VRSA, Clostridium Difficile or Cancer Family History FAMILY HISTORY: Positive Family Cardiac Disorders, Family Gastrointestinal Problems and Family Cancer Surgical History SURGICAL: Positive Open Heart Surgery, Coronary Artery Bypass Graft, Valve Replacement and Joint Replacement; Negative Endocrine Surgery, Nephrectomy, Neurologic Surgery, Mastectomy, Vasectomy or Organ Transplant Social History SMOKING STATUS: Current some day smoker SECOND HAND EXPOSURE: No SUBSTANCE USE: does not use ED Exam General Limitations: Present no limitations General appearance: Present alert and in no apparent distress Head Head exam: Present atraumatic Eye Eye exam: Present normal appearance, PERRL and EOMI ENT ENT exam: Present normal exam, normal oropharynx and mucous membranes moist Neck Neck exam: Present normal inspection, full ROM and trachea midline Chest Chest inspection: Present normal inspection and symmetric chest wall rise Respiratory Respiratory exam: Present normal lung sounds bilaterally Cardiovascular Cardiovascular exam: Present regular rate, normal rhythm and normal heart sounds Abdominal Exam Abdominal exam: Present soft and normal bowel sounds Extremities Exam Extremities exam: Present normal inspection and full ROM Back Exam Back exam: Present normal inspection and full ROM Neurological Exam Neurological exam: Present alert, oriented X3 and CN II-XII intact Psychiatric Psychiatric exam: Present normal affect and normal mood Skin Skin exam: Present warm, dry, intact and normal color Course Quality Measures none Orders Category Date Time Status Bedside COVID-19 Antigen Test NOW Care 08/10/24 19:45 Active Bedside Influenza A&B Antigen Test NOW Care 08/10/24 19:45 Active XR chest 2V Stat Exams 08/10/24 19:45 Completed Dexamethasone Inj [Decadron Inj] Med 08/10/24 21:20 Discontinued 10 mg PO X1 ONE Vital Signs Vital signs: Vital Signs Temperature 99.1 F 08/10/24 19:29 Pulse Rate 102 H 08/10/24 19:29 Respiratory Rate 18 08/10/24 19:29 Blood Pressure 128/75 08/10/24 19:29 Pulse Oximetry (%) 97 08/10/24 19:29 Oxygen Delivery Method Room Air 08/10/24 19:29 O2 at 97% on RA and WNLs Upper Respiratory Infection MDM Narrative MDM Narrative:: 64M with history of CAD presents to ED with several days of ASENCIO, cough, sore, fevers/chills, and some CP when coughing. Patient denies SOB and CP when not coughing. Physical exam reveals red oropharynx, but otherwise clear ENT and lungs. Normal WOB. No sinus tenderness. Patient is afebrile, calm, and alert. Gait normal. Speech normal. Swabs neg. CXR bronchitis. Meds and vocational rehabilitation counselor given. Patient data External records reviewed:: [facility] previous records Clinical information provided by:: patient Social determinants that could affect healthcare access:: none Patient has the following chronic illnesses:: CAD How is presenting disease/condition affected by chronic disease/condition?: exacerbated by Evaluation data The following diagnostics were reviewed and interpreted by me:: lab results and radiology exam(s) Lab and/or radiology exams considered but not ordered:: ordered Interpretation Summary: above Medications / Prescriptions Medications or Prescriptions considered but not ordered:: not ordered Medication administrations:: Medication Administration History Discontinued Medications Dexamethasone Sodium Phosphate (Dexamethasone Sod Phos Inj 10 Mg/Ml Vial) 10 mg PO X1 ONE Stop: 08/10/24 21:21 n/a Consultations Consultation(s) initiated? (list below): No Diagnosis Upper Respiratory Differential Diagnosis: upper respiratory infection, croup, otitis media, sinusitis, viral infection, bronchitis, influenza, pharyngitis and other (CAP) Most likely diagnosis given after review of the tests above:: bronchitis Admission Indicated Admission indicated?: not indicated Admission Request Was there a request for admission?: No Disposition Plan Disposition Plan: Discharge Discharge Attestation Discharge Attestation: The patient and all family members were given an opportunity to ask questions and understood the discharge instructions. Discharge instructions specifically effects, indications for sooner follow up or return to the emergency department, and the expected course of current diagnosis. Patient condition: Stable Discharge Plan Plan Patient Disposition: HOME (Self Care) Discharge Disposition comment: Stable Prescriptions/Referrals Prescriptions/Med Rec: No Action oxycodone-acetaminophen [Percocet] 10-325 mg Tablet 1 tab PO Q8H PRN (Reason: Pain) atorvastatin 80 mg tablet 80 mg PO DAILY Patient Comments: take 1 tablet by mouth once daily aspirin 81 mg tablet,delayed release (DR/EC) 81 mg PO DAILY Patient Comments: take 1 tablet by mouth once daily metoprolol tartrate 25 mg tablet 25 mg PO Q12H Patient Comments: take 1 tablet by mouth twice a day Referrals: Robbie Harrison MD [Primary Care Provider] - In 1 week Problem List Clinical Impression: Bronchitis Patient/Caregiver Discharge Instructions Education Materials: ED Bronchitis, No Antibiotic (Adult) Additional Instructions: Please follow-up with PCP within 24-48 hours and return immediately if symptoms worsen. Tylenol can be used simultaneously for fever/pain control. Print Language: Barbadian Stand Alone Forms: Patient Portal Info Letter PA/SHIPPING TECHNICIAN Supervising Physician PA/MARY Supervising Physician: Dr. Levy
--- NOTE | 2024-08-10 21:38 | PC.NURSE ---
NA x1 @ [id number] for medication and discharge.
--- NOTE | 2024-08-10 21:41 | PD.EDADDENDU ---
Emergency Room Addendum Addendum Narrative: Patient left prior to receiving DC papers.
--- NOTE | 2024-08-10 21:53 | PC.NURSE ---
Patient left prior to receiving Decadron PO and Discharge paperwork.
== END 2024-08-10 21:55 | disposition home or self-care (01) ==
PROVIDERS: Emergency Provider Emergency Medicine; PCP Family Medicine
DX: J40 Bronchitis, not specified as acute or chronic (principal); I25.10 Atherosclerotic heart disease of native coronary artery without angina pectoris; R51.9 Headache, unspecified
CPT/HCPCS: 71046; 99283

== ENCOUNTER → 2024-11-07 | Outpatient (CLI) | payer OTHER, SELFPAY ==
--- NOTE | 2024-11-07 | XR_ITS ---
Examination: Shoulder,left, 3 views Technique: Shoulder AP internal rotation, AP external rotation, Y view shoulder, 3 views Exam date and time :November 07, 2024 1055 hours INDICATIONS: Patient felt a pop in the shoulder yesterday followed by pain and decreased motion. FINDINGS: Moderate narrowing glenohumeral joint No shoulder fracture or dislocation Mild sclerosis involving the humeral head IMPRESSION: Moderate narrowing glenohumeral joint No fracture Mild sclerosis involving the humeral head, if avascular necrosis is a clinical consideration suggest MRI left shoulder without contrast follow-up
== END | disposition home or self-care (01) ==
LOC: CDIM 10:38
PROVIDERS: PCP Family Medicine; Referring Provider Family Medicine; Visit Provider Family Medicine
DX: M25.812 Other specified joint disorders, left shoulder (principal)
CPT/HCPCS: 73030

== ENCOUNTER → 2024-11-20 | Outpatient (CLI) | payer OTHER, SELFPAY ==
--- NOTE | 2024-11-20 07:00 | XR_ITS ---
MRI shoulder, left, without contrast. Date and time: November 20, 2024, 0717 hours INDICATIONS: Injury to the shoulder 2 weeks ago with frozen shoulder shoulder pain decreased abduction joint locking and clicking Technique: Multiple axial, sagittal and coronal sections of the shoulder have been obtained. Siemens high-resolution 1.5 Irene MRI scanner is utilized. Axial fat-suppressed sections, TR 2350, TE 18 T2-weighted coronal fat-saturated images, TR 3500, TE 7100 T1-weighted coronal images, TR 500, TE 15 T2-weighted sagittal fat-saturated images, TR 3500, TE 57 T1-weighted sagittal sections, TR 504, TE 13. Findings: Supraspinatus tendon insertion is abnormal, 30 mm full-thickness tear. Infraspinatus tendon insertion is intact. Subscapularis insertion is intact. Subscapularis bursa is small. Long head of the biceps is in the bicipital groove. No definite tear of the biceps superior labral anchor is seen. Retraction of the musculotendinous junction of the rotator cuff is mild. Tendinosis pattern is significant. Distance between the acromium and humeral head is 6.6 mm Atrophy of the supraspinatus muscle is severe. Atrophy of the infraspinatus muscle is moderate. Sagittal sections demonstrate a horizontal acromion. Acromioclavicular joint demonstrates mild osteoarthritis . Osacromiale is not identified. No labral tear is identified. Bony glenoid fossa on the sagittal sections does not demonstrate osseous defect. Occult fracture or area of avascular necrosis is not seen. Acromioclavicular joint separation is not visible. Defect in the posterolateral margin of the humeral head is not seen Impression: 30 mm full-thickness tear supraspinatus Prominent tendinosis rotator cuff muscles
== END | disposition home or self-care (01) ==
LOC: SMRI 06:42
PROVIDERS: Referring Provider Family Medicine; Visit Provider Family Medicine
DX: S46.012A Strain of muscle(s) and tendon(s) of the rotator cuff of left shoulder, initial encounter (principal); X58.XXXA Exposure to other specified factors, initial encounter
CPT/HCPCS: 73221